=== PATIENT | male | born 1955 | race Caucasian/White ===

== ENCOUNTER 2020-11-14 14:03 | Observation (INO) | payer OTHER ==
[~2020-11-14] VITALS: Ht 172.7 cm; Wt 92.2 kg
[2020-11-14 15:08] LABS: C-REACTIVE PROTEIN, EXT RANGE 0.867 mg/dL (0.000-0.300); Troponin I 0.055 ng/mL (0.000-0.040)
[2020-11-14 15:49] LABS: Influenza A, PCR NEGATIVE (NEGATIVE); Influenza B, PCR NEGATIVE (NEGATIVE); Resp Syncytial Virus, PCR NEGATIVE (NEGATIVE); SARS-Cov-2 (COVID-19) PCR, MMC NEGATIVE (NEGATIVE)
[2020-11-14] MEDS ORDERED: HYDROCODONE-AC1 EA11 PO (16:01)
[2020-11-14 17:39] LABS: Thyroid Stimulating Hormone 1.68 uIU/mL (0.360-4.800)
--- NOTE | 2020-11-14 19:17 | NUR ---
REPORT RECEIVED FROM KENYON BONILLA; DENIES PAIN OR NAUSEA; TELEMETRY REFLECTS NSR PER NAOMI--BACTERIOLOGIST FOOD; PT PERSONAL WALLET WAS LOCKED UP IN HOSPITAL SAFE VIA CHASE FROM SECURITY (SLIP PLACED IN CHART).
--- NOTE | 2020-11-14 20:20 | NUR ---
finished assessment after 1900, saline locked, rm air, call light in reach, noc nurse wanted to give medication even though it was late and pulled it, so gave pt the medication available and encouraged him to have a good night
--- NOTE | 2020-11-14 20:37 | NUR ---
PT REQUESTED THAT SCD'S BE REMOVED. NURSE NOTIFIED
[2020-11-14 20:39] LABS: Creatine Kinase MB 2.1 ng/mL (0.0-3.6); Creatine Kinase MB Index 0.8 (0.0-4.0)
--- NOTE | 2020-11-14 21:03 | NUR ---
REPORT RECEIVED FROM KENYON JONES IN ICE; PT IS COMFORT CARE.
[2020-11-14 23:31] LABS: U Amphetamine Screen Not Detected; U Barbituate Screen Not Detected; U Benzodiazapine Screen Not Detected; U Buprenorphine Screen Not Detected; U Cannabinoids Screen Not Detected; U Cocaine Screen Not Detected; U Methadone Screen Not Detected; U Methamphetamine Screen Not Detected; U Opiates Screen DETECTED; U Oxycodone Screen Not Detected; U Phencyclidine Screen Not Detected; U Propoxyphene Screen Not Detected
[2020-11-15 04:45] LABS: Alanine Aminotransfer (ALT/SGP 59 U/L (12-78); Albumin, Blood 3.1 g/dL (3.4-5.0); Albumin/Globulin Ratio 0.8 (0.8-1.8); Alk Phos 83 U/L (50-136); Anion Gap 8 mmol/L (6-16); Aspartate Aminotrans (AST/SGOT 96 U/L (12-37); Bilirubin, Total 2.3 mg/dL (0.1-1.0); Blood Urea Nitrogen 15 mg/dL (8-24); Bun/Creatinine Ratio 20.7 (12.0-20.0); CO2, Blood 25 mmol/L (21-32); Calcium, Blood 8.3 mg/dL (8.5-10.1); Chloride, Blood 107 mmol/L (98-108); Cholesterol 192 mg/dL (50-200); Creatinine, Blood 0.73 mg/dL (0.60-1.20); Globulin, Blood 3.8 g/dL (2.2-4.0); Glomerular Filtration Rate >60 (60-); Glucose, Blood 143 mg/dL (70-99); Phosphorus, Blood 2.9 mg/dL (2.5-4.9); Potassium, Blood 3.8 mmol/L (3.5-5.5); Sodium, Blood 140 mmol/L (136-145); Total Protein, Blood 6.9 g/dL (6.4-8.2); Triglycerides 103 mg/dL (30-160)
[2020-11-15 05:06] LABS: BASOPHILS ABSOLUTE AUTO 0.03 K/mm3 (0.00-0.23); BASOPHILS PERCENT AUTO 1 % (0-2); EOSINOPHILS ABSOLUTE AUTO 0.19 K/mm3 (0.00-0.68); EOSINOPHILS PERCENT AUTO 4 % (0-6); Hematocrit 41.8 % (37.0-53.0); Hemoglobin 14.4 g/dL (13.5-17.5); IMMATURE GRAN ABSOLUTE AUTO 0.01 K/mm3 (0.00-0.10); IMMATURE GRAN PERCENT AUTO 0 % (0-1); LYMPHOCYTES ABSOLUTE AUTO 1.17 K/mm3 (0.84-5.20); LYMPHOCYTES PERCENT AUTO 26 % (21-46); MONOCYTES ABSOLUTE AUTO 0.32 K/mm3 (0.16-1.47); MONOCYTES PERCENT AUTO 7 % (4-13); Mean Corpuscular HGB 34.6 pg (26.0-34.0); Mean Corpuscular HGB Conc 34.4 g/dL (31.5-36.5); Mean Corpuscular Volume 101 fL (80-100); Mean Platelet Volume 11.5 fL (9.1-12.4); NEUTROPHILS ABSOLUTE AUTO 2.84 K/mm3 (1.96-9.15); NEUTROPHILS PERCENT AUTO 62 % (41-73); RDW Coefficient Variation 12.6 % (11.7-14.2); RDW Standard Deviation 47.4 fL (35.1-46.3); Red Blood Cell Count 4.16 M/mm3 (4.30-5.90); White Blood Cell Count 4.56 K/mm3 (4.00-11.30)
--- NOTE | 2020-11-15 05:13 | NUR ---
SHIFT SUMMARY: 64 Y/O MALE RESTED COMFORTABLY ALL SHIFT; DENIES PAIN OR NAUSEA; PT HAS CHRONIC BACK PAIN HE RATED 7/10 WITH SCHEDULED NORCO 5/325 PO GIVEN TWICE WITH PAIN RELIEF FELT; TELEMETRY REFLECTS NSR PER NAOMI--KIER OPERATOR; HAPPY AND COOPERATIVE; BED LOW POSITION WITH CALL LIGHT AT SIDE.
[2020-11-15 05:18] LABS: Platelet Count 44 K/mm3 (150-400)
[2020-11-15 06:53] LABS: Creatine Kinase MB 1.8 ng/mL (0.0-3.6); Creatine Kinase MB Index 0.9 (0.0-4.0)
--- NOTE | 2020-11-15 19:41 | NUR ---
a+o, half of stress test completed today pt needs to be npo after breakfast, no caffine tonight, call light in reach, rm air, lr infusing with no s/sx of infection or infiltration, bed in low position, pt indpt in rm, bsr shared with staff and pt
--- NOTE | 2020-11-15 23:55 | NUR ---
1935 PT RESTING COMFORTABLY IN BED; CHEERFUL; DENIES CHEST PAIN OR SOB.
--- NOTE | 2020-11-16 03:19 | NUR ---
SHIFT SUMMARY: 64 Y/O MALE RESTED COMFORTABLY ALL SHIFT; DENIES PAIN OR NAUSEA; C/O CHRONIC BACK PAIN WITH SCHEDULED NORCO 5/325MG PO X 1 TABLET GIVEN WITH RELIEF FELT; TELEMETRY REFLECTS NSR PER NAOMI--DIAGNOSTICS TECH; HAPPY AND COOPERATIVE; BED LOW POSITION WITH CALL LIGHT AT SIDE.
[2020-11-16 05:06] LABS: Hematocrit 41.3 % (37.0-53.0); Hemoglobin 14.3 g/dL (13.5-17.5); Mean Corpuscular HGB 34.9 pg (26.0-34.0); Mean Corpuscular HGB Conc 34.6 g/dL (31.5-36.5); Mean Corpuscular Volume 101 fL (80-100); Mean Platelet Volume 11.6 fL (9.1-12.4); RDW Coefficient Variation 12.5 % (11.7-14.2); RDW Standard Deviation 46.8 fL (35.1-46.3); White Blood Cell Count 4.31 K/mm3 (4.00-11.30)
[2020-11-16 05:21] LABS: Alanine Aminotransfer (ALT/SGP 57 U/L (12-78); Albumin, Blood 3.1 g/dL (3.4-5.0); Albumin/Globulin Ratio 0.8 (0.8-1.8); Alk Phos 84 U/L (50-136); Anion Gap 7 mmol/L (6-16); Aspartate Aminotrans (AST/SGOT 83 U/L (12-37); Blood Urea Nitrogen 14 mg/dL (8-24); Bun/Creatinine Ratio 20.2 (12.0-20.0); CO2, Blood 25 mmol/L (21-32); Calcium, Blood 8.6 mg/dL (8.5-10.1); Chloride, Blood 108 mmol/L (98-108); Creatinine, Blood 0.69 mg/dL (0.60-1.20); Globulin, Blood 3.8 g/dL (2.2-4.0); Glomerular Filtration Rate >60 (60-); Glucose, Blood 103 mg/dL (70-99); Phosphorus, Blood 3.4 mg/dL (2.5-4.9); Potassium, Blood 3.6 mmol/L (3.5-5.5); Sodium, Blood 140 mmol/L (136-145); Total Protein, Blood 6.9 g/dL (6.4-8.2)
[2020-11-16 05:55] LABS: Platelet Count 43 K/mm3 (150-400)
[2020-11-16] MEDS ORDERED: ASPI81CH PO (18:45)
[2020-11-16] MEDS ORDERED: ATOR20 PO (18:45)
[2020-11-16] MEDS ORDERED: Acetaminophen325 M1 PO (18:45)
[2020-11-16] MEDS ORDERED: BISA10S PR (18:46)
[2020-11-16] MEDS ORDERED: FAMO20 PO (18:46)
[2020-11-16] MEDS ORDERED: ONDA4ODT MM (18:47)
[2020-11-16] MEDS ORDERED: NITR.4SL SL (18:47)
--- NOTE | 2020-11-16 19:13 | NUR ---
PATIENT DISCHARGE: PATIENT DISCHARGED TO HOME THIS SHIFT. MEDICATION RECONCILIATION COMPLETED; MED LIST FAXED TO [facility]. DISCHARGE EDUCATION COMPLETED WITH PATIENT. PATIENT INDEPENDENT; PATIENT REFUSED WHEELCHAIR TRANSPORT TO EXIT; PATIENT ESCORTED TO EXIT BY [facility] STAFF AT 1912. PATIENT DEPARTED [facility] VIA PRIVATE AUTO.
== END 2020-11-16 19:20 | disposition home or self-care (01) ==
LOC: ER 14:03 → ERHOLD 14:04 → MEDS 14:04
PROVIDERS: Emergency Medicine; Physician Assistant; ADMIT Family Medicine
DX: R07.89 Other chest pain (principal); R06.00 Dyspnea, unspecified; R19.7 Diarrhea, unspecified; I25.10 Atherosclerotic heart disease of native coronary artery without angina pectoris; I25.2 Old myocardial infarction; K70.30 Alcoholic cirrhosis of liver without ascites; F10.288 Alcohol dependence with other alcohol-induced disorder; F17.200 Nicotine dependence, unspecified, uncomplicated; D69.6 Thrombocytopenia, unspecified; E11.9 Type 2 diabetes mellitus without complications; Z95.5 Presence of coronary angioplasty implant and graft; Z20.822 Contact with and (suspected) exposure to COVID-19; Z79.4 Long term (current) use of insulin
CPT/HCPCS: 0241U; 36415; 71260; 78452; 80053; 82150; 82465; 82550; 82553; 82947; 83690; 83735; 83880; 84100; 84443; 84478; 84484; 85025; 85027; 86140; 93005; 93010; 93017; 93306; 96365; 96366; 96375; 96376; 99285-25; A9270; A9500; G0378; J0706; J2270; J2785; J3411; J3475; J7042; J7120; Q9967

== ENCOUNTER 2021-04-05 14:48 | Observation (INO) | payer OTHER ==
[~2021-04-05] VITALS: Ht 172.7 cm; Wt 86.2 kg
[~2021-04-05 14:48] MED LIST: ASPI81CH PO; ATOR20 PO; Acetaminophen325 M1 PO; BISA10S PR; FAMO20 PO; HYDROCODONE-AC1 EA11 PO; NITR.4SL SL; ONDA4ODT MM
[2021-04-05] MEDS ORDERED: LANTUS SOL100 UNIT/1 SC (15:58)
[2021-04-05 16:18] LABS: Source, Urine Clean Catch
[2021-04-05 16:24] LABS: Appearance, Urine Clear (Clear); BASOPHILS ABSOLUTE AUTO 0.08 K/mm3 (0.00-0.23); BASOPHILS PERCENT AUTO 1 % (0-2); Blood, Urine 1+ (Neg); Color, Urine Amber (P-Yellow); EOSINOPHILS ABSOLUTE AUTO 0.34 K/mm3 (0.00-0.68); EOSINOPHILS PERCENT AUTO 5 % (0-6); Glucose Qualitative, Urine Neg (Neg); Hematocrit 44.5 % (37.0-53.0); Hemoglobin 15.6 g/dL (13.5-17.5); IMMATURE GRAN ABSOLUTE AUTO 0.01 K/mm3 (0.00-0.10); IMMATURE GRAN PERCENT AUTO 0 % (0-1); Ketones, Urine 2+ (Neg); LYMPHOCYTES ABSOLUTE AUTO 2.45 K/mm3 (0.84-5.20); LYMPHOCYTES PERCENT AUTO 37 % (21-46); Leukocyte Esterase, Urine 1+ (Neg); MONOCYTES ABSOLUTE AUTO 0.39 K/mm3 (0.16-1.47); MONOCYTES PERCENT AUTO 6 % (4-13); Mean Corpuscular HGB 34.3 pg (26.0-34.0); Mean Corpuscular HGB Conc 35.1 g/dL (31.5-36.5); Mean Corpuscular Volume 98 fL (80-100); Mean Platelet Volume 9.9 fL (9.1-12.4); NEUTROPHILS ABSOLUTE AUTO 3.29 K/mm3 (1.96-9.15); NEUTROPHILS PERCENT AUTO 50 % (41-73); Nitrite, Urine Neg (Neg); Platelet Count 131 K/mm3 (150-400); Protein, Urine 2+ (Neg); RDW Coefficient Variation 13.7 % (11.7-14.2); RDW Standard Deviation 50.2 fL (35.1-46.3); Red Blood Cell Count 4.55 M/mm3 (4.30-5.90); Specific Gravity, Urine 1.025 (1.003-1.022); Urobilinogen, Urine 3+ (Normal); White Blood Cell Count 6.56 K/mm3 (4.00-11.30)
[2021-04-05 16:38] LABS: Bilirubin, Urine 1+ (Neg)
[2021-04-05 16:39] LABS: Hyaline Casts 0-2 /lpf (0-2); Mucus Mod (0-Heavy)
[2021-04-05 16:42] LABS: Bacteria Few /hpf; Squamous Epithelial Cells Few /hpf (Few)
[2021-04-05 16:52] LABS: Alanine Aminotransfer (ALT/SGP 61 U/L (12-78); Albumin, Blood 3.8 g/dL (3.4-5.0); Albumin/Globulin Ratio 0.9 (0.8-1.8); Alk Phos 86 U/L (50-136); Anion Gap 9 mmol/L (6-16); Aspartate Aminotrans (AST/SGOT 99 U/L (12-37); Bilirubin, Total 1.2 mg/dL (0.1-1.0); Blood Urea Nitrogen 13 mg/dL (8-24); Bun/Creatinine Ratio 15.9 (12.0-20.0); CO2, Blood 22 mmol/L (21-32); Calcium, Blood 8.7 mg/dL (8.5-10.1); Chloride, Blood 109 mmol/L (98-108); Creatinine, Blood 0.82 mg/dL (0.60-1.20); Ethanol (Alcohol), Blood, Med 284 mg/dL; Globulin, Blood 4.2 g/dL (2.2-4.0); Glomerular Filtration Rate >60 (60-); Glucose, Blood 135 mg/dL (70-99); Potassium, Blood 4.2 mmol/L (3.5-5.5); Salicylate <1.7 mg/dL (2.8-20.0); Sodium, Blood 140 mmol/L (136-145)
[2021-04-05 16:56] LABS: U Amphetamine Screen Not Detected; U Barbituate Screen Not Detected; U Benzodiazapine Screen Not Detected; U Buprenorphine Screen Not Detected; U Cannabinoids Screen Not Detected; U Cocaine Screen Not Detected; U Methadone Screen Not Detected; U Methamphetamine Screen Not Detected; U Opiates Screen Not Detected; U Oxycodone Screen Not Detected; U Phencyclidine Screen Not Detected; U Propoxyphene Screen Not Detected
[2021-04-05 17:31] LABS: Acetaminophen, Random <2.0 ug/mL (10.0-30.0)
[2021-04-05] MEDS ORDERED: OMEP20ER PO (17:35)
[2021-04-05] MEDS ORDERED: METO50 PO (17:36)
[2021-04-05 17:47] LABS: SARS-Cov-2 (COVID-19) PCR, MMC NEGATIVE (NEGATIVE)
[2021-04-06] MEDS ORDERED: Naltrexone HCl50 MG PO (10:34)
[2021-04-06] MEDS ORDERED: Neurontin 300300 MG PO (10:34)
== END 2021-04-06 11:30 | disposition home or self-care (01) ==
LOC: ER 14:48 → EOR 14:49
PROVIDERS: Physician Assistant; ADMIT Emergency Medicine
DX: F33.9 Major depressive disorder, recurrent, unspecified (principal); F10.239 Alcohol dependence with withdrawal, unspecified; E11.9 Type 2 diabetes mellitus without complications; I25.2 Old myocardial infarction; Z95.5 Presence of coronary angioplasty implant and graft; Z79.4 Long term (current) use of insulin; Z79.82 Long term (current) use of aspirin; Z20.822 Contact with and (suspected) exposure to COVID-19
CPT/HCPCS: 36415; 80053; 81001; 82947; 85025; 87086; 99285; A9270; G0378; G0480; Q3014; U0004

== ENCOUNTER 2021-06-11 05:48 | Emergency (ER) | payer OTHER ==
[~2021-06-11] VITALS: Ht 175.3 cm; Wt 83.9 kg
[~2021-06-11 05:48] MED LIST changes: +LANTUS SOL100 UNIT/1 SC; +METO50 PO; +Naltrexone HCl50 MG PO; +Neurontin 300300 MG PO; +OMEP20ER PO
[2021-06-11 07:11] LABS: BASOPHILS ABSOLUTE AUTO 0.05 K/mm3 (0.00-0.23); BASOPHILS PERCENT AUTO 1 % (0-2); EOSINOPHILS ABSOLUTE AUTO 0.07 K/mm3 (0.00-0.68); EOSINOPHILS PERCENT AUTO 1 % (0-6); Hematocrit 41.5 % (37.0-53.0); Hemoglobin 14.5 g/dL (13.5-17.5); IMMATURE GRAN ABSOLUTE AUTO 0.03 K/mm3 (0.00-0.10); IMMATURE GRAN PERCENT AUTO 1 % (0-1); LYMPHOCYTES ABSOLUTE AUTO 0.68 K/mm3 (0.84-5.20); LYMPHOCYTES PERCENT AUTO 13 % (21-46); MONOCYTES ABSOLUTE AUTO 0.62 K/mm3 (0.16-1.47); MONOCYTES PERCENT AUTO 11 % (4-13); Mean Corpuscular HGB 33.7 pg (26.0-34.0); Mean Corpuscular HGB Conc 34.9 g/dL (31.5-36.5); Mean Corpuscular Volume 97 fL (80-100); Mean Platelet Volume 10.1 fL (9.1-12.4); NEUTROPHILS ABSOLUTE AUTO 3.97 K/mm3 (1.96-9.15); NEUTROPHILS PERCENT AUTO 73 % (41-73); RDW Coefficient Variation 13.4 % (11.7-14.2); RDW Standard Deviation 47.8 fL (35.1-46.3); White Blood Cell Count 5.42 K/mm3 (4.00-11.30)
[2021-06-11 07:23] LABS: Platelet Count 45 K/mm3 (150-400)
[2021-06-11 07:33] LABS: Alanine Aminotransfer (ALT/SGP 91 U/L (12-78); Albumin, Blood 3.5 g/dL (3.4-5.0); Albumin/Globulin Ratio 0.7 (0.8-1.8); Alk Phos 124 U/L (50-136); Anion Gap 11 mmol/L (6-16); Aspartate Aminotrans (AST/SGOT 232 U/L (12-37); Bilirubin, Total 3.3 mg/dL (0.1-1.0); Blood Urea Nitrogen 16 mg/dL (8-24); Bun/Creatinine Ratio 21.7 (12.0-20.0); CO2, Blood 23 mmol/L (21-32); Calcium, Blood 8.7 mg/dL (8.5-10.1); Chloride, Blood 103 mmol/L (98-108); Creatinine, Blood 0.74 mg/dL (0.60-1.20); Globulin, Blood 5.3 g/dL (2.2-4.0); Glomerular Filtration Rate >60 (60-); Glucose, Blood 128 mg/dL (70-99); Potassium, Blood 4.2 mmol/L (3.5-5.5); Sodium, Blood 137 mmol/L (136-145); Total Protein, Blood 8.8 g/dL (6.4-8.2); Troponin I 0.039 ng/mL (0.000-0.040)
[2021-06-11 07:44] LABS: Source, Urine Clean Catch
[2021-06-11 07:49] LABS: Appearance, Urine Clear (Clear); Blood, Urine 2+ (Neg); Color, Urine Amber (P-Yellow); Glucose Qualitative, Urine Neg (Neg); Ketones, Urine 4+ (Neg); Leukocyte Esterase, Urine 1+ (Neg); Nitrite, Urine Neg (Neg); Protein, Urine 2+ (Neg); Urobilinogen, Urine 2+ (Normal)
[2021-06-11 07:50] LABS: Bilirubin, Urine 1+ (Neg)
[2021-06-11 08:01] LABS: Amorphous Light (0-Heavy); Bacteria Rare /hpf; Mucus Heavy (0-Heavy); Red Blood Cells, Urine 0-2 /hpf (0-2); Squamous Epithelial Cells Rare /hpf (Few)
[2021-06-11] MEDS ORDERED: CHLO25 PO ×2 (09:37→09:40)
[2021-06-11] MEDS ORDERED: PROM25 PO (09:37)
== END 2021-06-11 09:50 | disposition home or self-care (01) ==
LOC: ER 05:48
PROVIDERS: Emergency Medicine
DX: R10.10 Upper abdominal pain, unspecified (principal); R11.2 Nausea with vomiting, unspecified; F10.10 Alcohol abuse, uncomplicated; I25.2 Old myocardial infarction; F32.9 Major depressive disorder, single episode, unspecified; Z79.4 Long term (current) use of insulin; Z79.899 Other long term (current) drug therapy
CPT/HCPCS: 36415; 74177; 80053; 81001; 83690; 84484; 85025; 87086; 93005; 93010; 96374-59; 96375; 99284-25; J1170; J2060; J2405; J7120; Q9967

== ENCOUNTER 2021-08-03 22:34 | Emergency (ER) | payer OTHER ==
[~2021-08-03] VITALS: Ht 172.7 cm; Wt 81.7 kg
[~2021-08-03 22:34] MED LIST changes: +CHLO25 PO; +PROM25 PO
[2021-08-03 23:16] LABS: BASOPHILS ABSOLUTE AUTO 0.06 K/mm3 (0.00-0.23); BASOPHILS PERCENT AUTO 1 % (0-2); EOSINOPHILS PERCENT AUTO 2 % (0-6); Hematocrit 30.6 % (37.0-53.0); Hemoglobin 10.5 g/dL (13.5-17.5); IMMATURE GRAN ABSOLUTE AUTO 0.02 K/mm3 (0.00-0.10); IMMATURE GRAN PERCENT AUTO 0 % (0-1); LYMPHOCYTES ABSOLUTE AUTO 1.08 K/mm3 (0.84-5.20); LYMPHOCYTES PERCENT AUTO 17 % (21-46); MONOCYTES ABSOLUTE AUTO 0.27 K/mm3 (0.16-1.47); MONOCYTES PERCENT AUTO 4 % (4-13); Mean Corpuscular HGB 35.4 pg (26.0-34.0); Mean Corpuscular HGB Conc 34.3 g/dL (31.5-36.5); Mean Corpuscular Volume 103 fL (80-100); Mean Platelet Volume 10.2 fL (9.1-12.4); NEUTROPHILS ABSOLUTE AUTO 4.66 K/mm3 (1.96-9.15); NEUTROPHILS PERCENT AUTO 75 % (41-73); Platelet Count 69 K/mm3 (150-400); RDW Coefficient Variation 14.3 % (11.7-14.2); RDW Standard Deviation 54.7 fL (35.1-46.3); Red Blood Cell Count 2.97 M/mm3 (4.30-5.90); White Blood Cell Count 6.19 K/mm3 (4.00-11.30)
[2021-08-03 23:37] LABS: Alanine Aminotransfer (ALT/SGP 56 U/L (12-78); Albumin, Blood 2.4 g/dL (3.4-5.0); Albumin/Globulin Ratio 0.6 (0.8-1.8); Alk Phos 81 U/L (50-136); Anion Gap 9 mmol/L (6-16); Aspartate Aminotrans (AST/SGOT 97 U/L (12-37); Bilirubin, Total 2.5 mg/dL (0.1-1.0); Blood Urea Nitrogen 16 mg/dL (8-24); Bun/Creatinine Ratio 24.4 (12.0-20.0); CO2, Blood 23 mmol/L (21-32); Calcium, Blood 7.8 mg/dL (8.5-10.1); Chloride, Blood 110 mmol/L (98-108); Creatinine, Blood 0.66 mg/dL (0.60-1.20); Glomerular Filtration Rate >60 (60-); Glucose, Blood 242 mg/dL (70-99); Potassium, Blood 4.7 mmol/L (3.5-5.5); Sodium, Blood 142 mmol/L (136-145); Total Protein, Blood 6.4 g/dL (6.4-8.2); Troponin I 0.036 ng/mL (0.000-0.040)
[2021-08-04 00:02] LABS: International Normalized Ratio 1.56; Prothrombin Time Results 15.9 Sec (9.7-11.5)
[2021-08-04 02:06] LABS: SARS-Cov-2 (COVID-19) PCR, MMC NEGATIVE (NEGATIVE)
== END 2021-08-04 02:20 | disposition short-term general hospital (02) ==
LOC: ER 22:34
PROVIDERS: Student in an Organized Health Care Education/Training Program
DX: K92.2 Gastrointestinal hemorrhage, unspecified (principal); F10.10 Alcohol abuse, uncomplicated; K70.30 Alcoholic cirrhosis of liver without ascites; D64.9 Anemia, unspecified; Z20.822 Contact with and (suspected) exposure to COVID-19; Z79.4 Long term (current) use of insulin; Z79.899 Other long term (current) drug therapy; I25.2 Old myocardial infarction; E11.9 Type 2 diabetes mellitus without complications; Z87.891 Personal history of nicotine dependence
CPT/HCPCS: 36415; 71045; 80053; 82140; 83690; 84484; 85025; 85610; 85730; 86850; 86900; 86901; 93005; 93010; 96365; 96367; 96375; 99285-25; C9113; J0696; J2354; J2405; J2765; U0004

== ENCOUNTER 2021-11-07 09:14 | Inpatient (IN) | payer OTHER ==
[~2021-11-07] VITALS: Ht 175.3 cm; Wt 84.4 kg
[2021-11-07 10:01] LABS: BASOPHILS ABSOLUTE AUTO 0.04 K/mm3 (0.00-0.23); BASOPHILS PERCENT AUTO 1 % (0-2); EOSINOPHILS ABSOLUTE AUTO 0.12 K/mm3 (0.00-0.68); EOSINOPHILS PERCENT AUTO 3 % (0-6); Hematocrit 30.1 % (37.0-53.0); Hemoglobin 9.5 g/dL (13.5-17.5); IMMATURE GRAN ABSOLUTE AUTO 0.01 K/mm3 (0.00-0.10); IMMATURE GRAN PERCENT AUTO 0 % (0-1); LYMPHOCYTES ABSOLUTE AUTO 0.97 K/mm3 (0.84-5.20); LYMPHOCYTES PERCENT AUTO 27 % (21-46); MONOCYTES ABSOLUTE AUTO 0.33 K/mm3 (0.16-1.47); MONOCYTES PERCENT AUTO 9 % (4-13); Mean Corpuscular HGB 25.1 pg (26.0-34.0); Mean Corpuscular HGB Conc 31.6 g/dL (31.5-36.5); Mean Corpuscular Volume 80 fL (80-100); Mean Platelet Volume 8.8 fL (9.1-12.4); NEUTROPHILS ABSOLUTE AUTO 2.14 K/mm3 (1.96-9.15); NEUTROPHILS PERCENT AUTO 59 % (41-73); Platelet Count 80 K/mm3 (150-400); RDW Coefficient Variation 22.5 % (11.7-14.2); RDW Standard Deviation 64.8 fL (35.1-46.3); Red Blood Cell Count 3.78 M/mm3 (4.30-5.90); White Blood Cell Count 3.61 K/mm3 (4.00-11.30)
[2021-11-07] MEDS ORDERED: ATOR40TA PO (10:10)
[2021-11-07] MEDS ORDERED: PANTOPRAZOLE SO40 M2 PO (10:10)
[2021-11-07] MEDS ORDERED: PLAVIX75 MG PO (10:10)
[2021-11-07] MEDS ORDERED: Inderal40 MG PO (10:11)
[2021-11-07] MEDS ORDERED: ISOSORBIDE MONO30 MG PO (10:11)
[2021-11-07] MEDS ORDERED: NITROGLYCERIN0.4 M3 SL (10:11)
[2021-11-07 10:13] LABS: Alanine Aminotransfer (ALT/SGP 24 U/L (12-78); Albumin, Blood 3.4 g/dL (3.4-5.0); Albumin/Globulin Ratio 0.8 (0.8-1.8); Alk Phos 93 U/L (50-136); Anion Gap 6 mmol/L (6-16); Aspartate Aminotrans (AST/SGOT 50 U/L (12-37); Bilirubin, Total 1.6 mg/dL (0.1-1.0); Blood Urea Nitrogen 7 mg/dL (8-24); Bun/Creatinine Ratio 10.3 (12.0-20.0); CO2, Blood 25 mmol/L (21-32); Calcium, Blood 7.9 mg/dL (8.5-10.1); Chloride, Blood 111 mmol/L (98-108); Creatinine, Blood 0.68 mg/dL (0.60-1.20); Glomerular Filtration Rate >60 (60-); Glucose, Blood 164 mg/dL (70-99); Potassium, Blood 3.6 mmol/L (3.5-5.5); Sodium, Blood 142 mmol/L (136-145); Total Protein, Blood 7.4 g/dL (6.4-8.2)
[2021-11-07 12:21] LABS: Anti-Xa UFH, PHA Monitoring <0.10 IU/mL; International Normalized Ratio 1.38; Prothrombin Time Results 14.2 Sec (9.7-11.5)
[2021-11-07 12:45] LABS: Influenza A, PCR NEGATIVE (NEGATIVE); Influenza B, PCR NEGATIVE (NEGATIVE); Resp Syncytial Virus, PCR NEGATIVE (NEGATIVE); SARS-Cov-2 (COVID-19) PCR, MMC NEGATIVE (NEGATIVE)
--- NOTE | 2021-11-07 14:50 | NUR ---
PT RETURNED TO PCU16 FROM FERTILIZER PROCESSING SUPERVISOR. R WRIST TR BAND, 11ML, NO BLEEDING OR HEMATOMA. SENSATION AND PERFUSION INTACT TO R HAND. 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 PT IS AWAKE, ALERT AND ORIENTED. CALL LIGHT IN REACH. WILL CONTINUE TO MONITOR.
--- NOTE | 2021-11-07 15:30 | NUR ---
2ML AIR REMOVED FROM TR BAND, BLEEDING NOTED AT SITE, 2ML AIR RETURNED TO BAND AND HEMOSTASIS OBTAINED. WILL MONITOR AND TRY AGAIN.
--- NOTE | 2021-11-07 16:11 | NUR ---
PT C/O 01/[address] RITCHIE NOTIFIED AND ORDERS RECEIVED.
--- NOTE | 2021-11-07 16:34 | NUR ---
DR MCCRAY UPDATED OF PT'S CHEST PAIN. STATES HE WILL COME EVALUATE THE PT AT BEDSIDE AND CALL PT'S FAMILY TO UPDATE THEM ON THE PLAN.
--- NOTE | 2021-11-07 16:55 | NUR ---
DR MCCRAY AT BEDSIDE. ORDERS FOR MORPHINE AND TRANSFER PT TO ICU FOR NITRO GTT. DR MCCRAY GIVEN NUMBER FOR PT'S SON, REQUESTING AN UPDATE ON STATUS. TR BAND HAS BEEN DEFLATED WITHOUT HEMATOMA OR BLEEDING, BAND WILL STAY IN PLACE X 1 HR PER PROTOCOL. WILL CONTINUE TO MONITOR AND REPORT TO FACSIMILE MACHINE OPERATOR FOR TRANSFER.
--- NOTE | 2021-11-07 17:05 | NUR ---
PT REPORTS CHEST PAIN 2/10 AT THIS TIME. PT APPEARS TO BE RESTING MORE COMFORTABLY. R RADIAL SITE WNL, NO BLEEDING OR HEMATOMA NOTED.
--- NOTE | 2021-11-07 18:03 | NUR ---
PT TRANSFERED FROM PCU THIS EVENING. PT WAS TRANSFERED TO BE STARTED ON NITRO GTT. PT ARRIVES WITH 2/10 SUBSTERNAL DULL ACHING CP. AFTER NITRO GTT STARTED CP IS IMPROVING. PT IS ON HEPARIN GTT AND BANANA BAG RUNNING. TR BAND TO R RADIAL ACCESS SITE IS DEFLATED BUT STILL IN PLACE. REVIEWED WITH CHILD CUSTODY EVALUATOR AND NO NEW BLEEDING AT SITE, NO HEMATOMA, ARM BOARD IN PLACE. PT IS A/O X4, PLEASANT AND COOPERATIVE. STATES HE HAS A LITTLE NAUSEA WITH CP, NO SOB. WILL CONTINUE TO MONITOR AND TITRATE NITRO FOR CP. POSSIBLE TRANSFER FOR CABG, NO ORDERS YET.
--- NOTE | 2021-11-07 19:15 | NUR ---
TOOK OVER CARE OF PEMA COSBY. PT ASKING ABOUT USING THE BATHROOM. PT ASSISTED TO STANDING POSITION NEXT TO THE BED TO USE URINAL, PAIN MINIMAL AND NO LIGHTHEADED OR DIZZINESS. ON NITRO GTT @ 10MCG/MIN AND HEPARIN 15U/KG. PIV SITES LEFT FOREARM AND WRIST, RIGHT AC WITH SALINE LOCK. ASSESSMENT COMPLETED. SEE FOR DETAILS.
--- NOTE | 2021-11-07 20:21 | NUR ---
LAB WENT IN TO DRAW BLOOD AT 1999, PEMA BEGAN TO EXPERIENCE AN INCREASE IN HIS CHEST PAIN, 02/28. PT MEDICATED WITH MORPHINE 2MG IV, HE BEGAN FEELING VERY NAUSEATED AND WAS CONCERNED FOR THROWING UP REGARDING HIS HISTORY WITH VARICIES, MEDICATED WITH ZOFRAN PER NOV. SYMPTOMS SUBSIDING. SPOKE TO PATIENT IN REGARDS TO CONVERSATION WITH THAT I HAD JUST PRIOR TO THE START OF HIS CHEST PAIN. STATES THAT HE WILL WORK ON TRANSFER IN THE MORNING FOR PATIENT TO RECEIVE 3 VESSEL BYPASS. PT MADE AWARE OF THIS, QUESTIONS ASKED AND ANSWERED. WILL CONTINUE TO MONITOR AND TREAT THROUGHOUT THE NIGHT.
--- NOTE | 2021-11-07 22:32 | NUR ---
EARLIER PEMA ASKED ABOUT THE MEDICINE HE WAS GIVEN FOR HIS ALCOHOL WITHDRAWAL ALTHOUGH HIS ONLY SYMPTOM CURRENTLY IS TREMORS. HE WAS GIVEN AN ORAL DOSE OF LIBRIUM WITH MINIMAL RELIEF, A DOSE OF ATIVAN WAS JUST GIVEN. PT STATES HIS CHEST PAIN IS COVERED AT THIS TIME. HIS HEPARIN HAS BEEN INCREASED TO 17U/KG PER PHARMACY ORDER, NITRO GTT REMAINS AT 15MCG/MIN. WILL CONTINUE TO MONITOR AND TREAT.
--- NOTE | 2021-11-08 00:15 | NUR ---
NASAL CANNULA OXYGEN AT 2L PLACED FOR PATIENT FOR O2 SATS DIPPING IN TO THE MID 80'S WHILE SLEEPING. PT DENIES ANY CHEST PAIN AT THIS TIME.
[2021-11-08 03:22] LABS: BASOPHILS ABSOLUTE AUTO 0.05 K/mm3 (0.00-0.23); BASOPHILS PERCENT AUTO 1 % (0-2); EOSINOPHILS ABSOLUTE AUTO 0.09 K/mm3 (0.00-0.68); EOSINOPHILS PERCENT AUTO 2 % (0-6); Hematocrit 26.5 % (37.0-53.0); Hemoglobin 8.3 g/dL (13.5-17.5); IMMATURE GRAN ABSOLUTE AUTO 0.01 K/mm3 (0.00-0.10); IMMATURE GRAN PERCENT AUTO 0 % (0-1); LYMPHOCYTES ABSOLUTE AUTO 1.04 K/mm3 (0.84-5.20); LYMPHOCYTES PERCENT AUTO 22 % (21-46); MONOCYTES ABSOLUTE AUTO 0.47 K/mm3 (0.16-1.47); MONOCYTES PERCENT AUTO 10 % (4-13); Mean Corpuscular HGB 25.3 pg (26.0-34.0); Mean Corpuscular HGB Conc 31.3 g/dL (31.5-36.5); Mean Corpuscular Volume 81 fL (80-100); Mean Platelet Volume 9.7 fL (9.1-12.4); NEUTROPHILS ABSOLUTE AUTO 3.17 K/mm3 (1.96-9.15); NEUTROPHILS PERCENT AUTO 66 % (41-73); Platelet Count 62 K/mm3 (150-400); RDW Coefficient Variation 22.4 % (11.7-14.2); RDW Standard Deviation 65.2 fL (35.1-46.3); Red Blood Cell Count 3.28 M/mm3 (4.30-5.90); White Blood Cell Count 4.83 K/mm3 (4.00-11.30)
[2021-11-08 03:47] LABS: Alanine Aminotransfer (ALT/SGP 19 U/L (12-78); Albumin, Blood 2.9 g/dL (3.4-5.0); Albumin/Globulin Ratio 0.8 (0.8-1.8); Alk Phos 79 U/L (50-136); Anion Gap 4 mmol/L (6-16); Aspartate Aminotrans (AST/SGOT 39 U/L (12-37); Bilirubin, Total 3.3 mg/dL (0.1-1.0); Blood Urea Nitrogen 8 mg/dL (8-24); Bun/Creatinine Ratio 12.5 (12.0-20.0); CO2, Blood 25 mmol/L (21-32); Calcium, Blood 7.3 mg/dL (8.5-10.1); Chloride, Blood 108 mmol/L (98-108); Creatinine, Blood 0.64 mg/dL (0.60-1.20); Globulin, Blood 3.6 g/dL (2.2-4.0); Glomerular Filtration Rate >60 (60-); Glucose, Blood 224 mg/dL (70-99); Magnesium, Blood 1.6 mg/dL (1.6-2.4); Potassium, Blood 4.1 mmol/L (3.5-5.5); Sodium, Blood 137 mmol/L (136-145); Total Protein, Blood 6.5 g/dL (6.4-8.2)
--- NOTE | 2021-11-08 04:12 | NUR ---
PEMA HAS BEEN SLEEPING, AWAKENS TO STIMULI. HAS DENIED CHEST PAIN THE LAST COUPLE OF HOURS AT EACH ASKING. VSS. NTG GTT @ 15MCG/MIN, HEPARIN GTT @ 17 U/KG/HR, NO CHANGES.
--- NOTE | 2021-11-08 05:48 | NUR ---
PEMA WOKE UP AND NEEDED TO USE THE URINAL, STANDBY ASSIST TO USE THE URINAL. HE DENIES ANY CHEST PAIN AT THIS TIME, TAKING IN ICE CHIPS. NTG GTT @ 15 MCG AND HEPARIN GTT @ 17U/KG. PT STATES HE FEELS LESS SHAKY AND A BIT MORE ENERGY THIS MORNING. WILL CONTINUE TO MONITOR.
--- NOTE | 2021-11-08 13:23 | NUR ---
PT TRANSFERRED TO [facility] AT 1315. REPORT GIVEN TO KENYON MORAN VIA PHONE. AT TIME ON TRANSFER, PT ON NITROGLYCERIN AT 30MCG/MIN AND HEPARIN AT 17 U/KG/HR. PT ALERT AND ORIENTED, DENIES CHEST PAIN. ON ROOM AIR. ALL BELONGINGS SENT WITH PATIENT. FAMILY NOTIFIED OF TRANSFER.
== END 2021-11-08 13:00 | disposition short-term general hospital (02) | DRG 281 ==
LOC: ER 09:14 → PCU 11:46 → ICUE 11:46 → PCU 12:38 → ICUE 17:20
PROVIDERS: Nurse Practitioner Acute Care; Student in an Organized Health Care Education/Training Program; ADMIT Internal Medicine
PROC: 4A023N7 Measurement of Cardiac Sampling and Pressure, Left Heart, Percutaneous Approach (ICD-10-PCS; principal; 2021-11-07)
PROC: B2111ZZ Fluoroscopy of Multiple Coronary Arteries using Low Osmolar Contrast (ICD-10-PCS; 2021-11-07)
PROC: 3E02340 Introduction of Influenza Vaccine into Muscle, Percutaneous Approach (ICD-10-PCS; 2021-11-07)
DX: I21.4 Non-ST elevation (NSTEMI) myocardial infarction (principal); I85.10 Secondary esophageal varices without bleeding; Z20.822 Contact with and (suspected) exposure to COVID-19; F32.A Depression, unspecified; Z23 Encounter for immunization; I25.10 Atherosclerotic heart disease of native coronary artery without angina pectoris; E78.5 Hyperlipidemia, unspecified; K70.30 Alcoholic cirrhosis of liver without ascites; Z98.890 Other specified postprocedural states; Z87.891 Personal history of nicotine dependence; Z79.4 Long term (current) use of insulin; Z79.02 Long term (current) use of antithrombotics/antiplatelets; Z79.899 Other long term (current) drug therapy
CPT/HCPCS: 0241U; 36415; 71045; 76937; 80053; 82947; 83735; 84484; 85025; 85520; 85610; 85730; 90686; 93005; 93010; 93306; 93458; 96374; 96375; 99152; 99285-25; A9270; C1769; C1887; C1894; J1644; J1815; J2060; J2250; J2270; J2405; J2560; J3010; J3411; J3475; J7030; J7040; J7042; J7050; Q9967

== ENCOUNTER 2021-12-27 13:56 | Emergency (ER) | payer OTHER ==
[~2021-12-27] VITALS: Ht 175.3 cm; Wt 87.1 kg
[~2021-12-27 13:56] MED LIST changes: +ATOR40TA PO; +ISOSORBIDE MONO30 MG PO; +Inderal40 MG PO; +NITROGLYCERIN0.4 M3 SL; +PANTOPRAZOLE SO40 M2 PO; +PLAVIX75 MG PO
[2021-12-27] MEDS ORDERED: ASPI81CH PO (14:06)
[2021-12-27 16:17] LABS: Anion Gap 5 mmol/L (6-16); Blood Urea Nitrogen 11 mg/dL (8-24); Bun/Creatinine Ratio 16.3 (12.0-20.0); CO2, Blood 27 mmol/L (21-32); Chloride, Blood 111 mmol/L (98-108); Creatinine, Blood 0.68 mg/dL (0.60-1.20); Glomerular Filtration Rate >60 (60-); Glucose, Blood 112 mg/dL (70-99); Potassium, Blood 4.6 mmol/L (3.5-5.5); Sodium, Blood 143 mmol/L (136-145)
[2021-12-27 16:21] LABS: BASOPHILS ABSOLUTE AUTO 0.07 K/mm3 (0.00-0.23); BASOPHILS PERCENT AUTO 2 % (0-2); EOSINOPHILS ABSOLUTE AUTO 0.27 K/mm3 (0.00-0.68); EOSINOPHILS PERCENT AUTO 6 % (0-6); Hematocrit 31.9 % (37.0-53.0); IMMATURE GRAN ABSOLUTE AUTO 0.01 K/mm3 (0.00-0.10); IMMATURE GRAN PERCENT AUTO 0 % (0-1); LYMPHOCYTES PERCENT AUTO 26 % (21-46); MONOCYTES ABSOLUTE AUTO 0.53 K/mm3 (0.16-1.47); MONOCYTES PERCENT AUTO 11 % (4-13); Mean Corpuscular HGB 25.8 pg (26.0-34.0); Mean Corpuscular HGB Conc 31.3 g/dL (31.5-36.5); Mean Corpuscular Volume 82 fL (80-100); NEUTROPHILS ABSOLUTE AUTO 2.57 K/mm3 (1.96-9.15); NEUTROPHILS PERCENT AUTO 55 % (41-73); RDW Coefficient Variation 20.7 % (11.7-14.2); RDW Standard Deviation 62.1 fL (35.1-46.3); Red Blood Cell Count 3.87 M/mm3 (4.30-5.90); White Blood Cell Count 4.65 K/mm3 (4.00-11.30)
[2021-12-27 16:26] LABS: Mean Platelet Volume 11.4 fL (9.1-12.4)
[2021-12-27 16:39] LABS: Platelet Count 51 K/mm3 (150-400)
[2021-12-27] MEDS ORDERED: POTA10T PO (17:15)
[2021-12-27] MEDS ORDERED: FURO20 PO (17:15)
[2022-06-15] MEDS ORDERED: ASPI81CH PO (04:12)
[2022-06-16] MEDS ORDERED: Amlodipine Bes2.5 MG PO (13:01)
== END 2021-12-27 17:42 | disposition home or self-care (01) ==
LOC: ER 13:56
PROVIDERS: Emergency Medicine
DX: R60.0 Localized edema (principal); E78.5 Hyperlipidemia, unspecified; E11.9 Type 2 diabetes mellitus without complications; I50.9 Heart failure, unspecified; Z87.891 Personal history of nicotine dependence; Z88.8 Allergy status to other drugs, medicaments and biological substances; Z79.4 Long term (current) use of insulin; Z79.82 Long term (current) use of aspirin; Z79.899 Other long term (current) drug therapy
CPT/HCPCS: 80048; 83880; 85025; 99283

== ENCOUNTER 2022-04-17 10:56 | Inpatient (IN) | payer OTHER ==
[~2022-04-17] VITALS: Ht 172.7 cm; Wt 78.6 kg
[~2022-04-17 10:56] MED LIST changes: +FURO20 PO; +POTA10T PO
[2022-04-17 11:59] LABS: BASOPHILS ABSOLUTE AUTO 0.07 K/mm3 (0.00-0.23); BASOPHILS PERCENT AUTO 1 % (0-2); EOSINOPHILS ABSOLUTE AUTO 0.06 K/mm3 (0.00-0.68); EOSINOPHILS PERCENT AUTO 1 % (0-6); Hematocrit 28.9 % (37.0-53.0); Hemoglobin 9.2 g/dL (13.5-17.5); IMMATURE GRAN ABSOLUTE AUTO 0.03 K/mm3 (0.00-0.10); IMMATURE GRAN PERCENT AUTO 0 % (0-1); LYMPHOCYTES ABSOLUTE AUTO 1.52 K/mm3 (0.84-5.20); LYMPHOCYTES PERCENT AUTO 17 % (21-46); MONOCYTES ABSOLUTE AUTO 0.72 K/mm3 (0.16-1.47); MONOCYTES PERCENT AUTO 8 % (4-13); Mean Corpuscular HGB 29.5 pg (26.0-34.0); Mean Corpuscular HGB Conc 31.8 g/dL (31.5-36.5); Mean Corpuscular Volume 93 fL (80-100); NEUTROPHILS ABSOLUTE AUTO 6.52 K/mm3 (1.96-9.15); NEUTROPHILS PERCENT AUTO 73 % (41-73); RDW Coefficient Variation 23.6 % (11.7-14.2); RDW Standard Deviation 78.7 fL (35.1-46.3); Red Blood Cell Count 3.12 M/mm3 (4.30-5.90); White Blood Cell Count 8.92 K/mm3 (4.00-11.30)
[2022-04-17 12:11] LABS: Albumin, Blood 3.1 g/dL (3.4-5.0); Albumin/Globulin Ratio 0.7 (0.8-1.8); Bilirubin, Total 4.6 mg/dL (0.1-1.0); Bun/Creatinine Ratio 28.9 (12.0-20.0); Creatinine, Blood 0.83 mg/dL (0.60-1.20); Globulin, Blood 4.4 g/dL (2.2-4.0); Potassium, Blood 5.2 mmol/L (3.5-5.5); Total Protein, Blood 7.5 g/dL (6.4-8.2)
[2022-04-17 12:15] LABS: Platelet Count 45 K/mm3 (150-400)
[2022-04-17 12:16] LABS: Source, Urine Clean Catch
[2022-04-17 12:26] LABS: Appearance, Urine Clear (Clear); Blood, Urine 1+ (Neg); Glucose Qualitative, Urine Neg (Neg); Ketones, Urine 2+ (Neg); Leukocyte Esterase, Urine Neg (Neg); Nitrite, Urine Neg (Neg); Protein, Urine 2+ (Neg); Specific Gravity, Urine 1.025 (1.003-1.022); Urobilinogen, Urine 2+ (Normal)
[2022-04-17 12:39] LABS: Bilirubin, Urine 2+ (Neg); Color, Urine Orange (P-Yellow)
[2022-04-17 12:42] LABS: Hyaline Casts 50-100 /lpf (0-2)
[2022-04-17 12:44] LABS: White Blood Cells, Urine 0-2 /hpf (0-5)
[2022-04-17 12:50] LABS: Red Blood Cells, Urine 0-2 /hpf (0-2)
[2022-04-17 12:52] LABS: Squamous Epithelial Cells Rare /hpf (Few)
[2022-04-17 12:54] LABS: Bacteria Few /hpf
[2022-04-17 12:55] LABS: Yeast/Fungi Urine Few /hpf
[2022-04-17] MEDS ORDERED: ATOR40TA PO (14:35)
[2022-04-17] MEDS ORDERED: ISOMON20 PO (14:35)
[2022-04-17] MEDS ORDERED: Inderal40 MG PO (14:36)
[2022-04-17 19:38] LABS: Influenza A, PCR NEGATIVE (NEGATIVE); Influenza B, PCR NEGATIVE (NEGATIVE); Resp Syncytial Virus, PCR NEGATIVE (NEGATIVE); SARS-Cov-2 (COVID-19) PCR, MMC NEGATIVE (NEGATIVE)
[2022-04-17 20:20] LABS: Hematocrit 25.1 % (37.0-53.0); Hemoglobin 8.2 g/dL (13.5-17.5)
--- NOTE | 2022-04-18 00:40 | NUR ---
ASSUMTION OF CARE PT RECIEVED FROM ED KENYON MAYO. PT LASHAE STABLE A&OX3 WAS OFF ON THE DATE. PT WAS ABLE TO COMPLEAT ADMISSION HISTORY. PT COMPLAINED OF HIS TREMORS WHICH ARE SEVER TO THE POINT PT GROSS MOTOR IS EFFECTIED NO OTHER COPLAINT PER PATIENT SEE ASSESMENT FOR HEAD TO TOE
[2022-04-18 04:13] LABS: Hematocrit 25.3 % (37.0-53.0); Hemoglobin 8.4 g/dL (13.5-17.5); Mean Corpuscular HGB 30.3 pg (26.0-34.0); Mean Corpuscular HGB Conc 33.2 g/dL (31.5-36.5); Mean Corpuscular Volume 91 fL (80-100); RDW Standard Deviation 79.3 fL (35.1-46.3); Red Blood Cell Count 2.77 M/mm3 (4.30-5.90); White Blood Cell Count 4.86 K/mm3 (4.00-11.30)
[2022-04-18 04:16] LABS: Platelet Count 28 K/mm3 (150-400)
[2022-04-18 04:24] LABS: Bun/Creatinine Ratio 28.5 (12.0-20.0); Creatinine, Blood 0.74 mg/dL (0.60-1.20); Potassium, Blood 4.4 mmol/L (3.5-5.5)
--- NOTE | 2022-04-18 04:29 | NUR ---
SHIFT SUMMARY PT WAS ADDMITTED FROM ED EARLY THIS AM PT WAS ALERT AND CONVERSATING ON ARIVAL HE WAS ABLE TO ANSEWER ADDMISSION QUESTIONS.PT WAS DISORIENTED ON THE DATE SAYING 1921 BUT WAS ABLE TO RECOGNIZE THIS WAS INCORRECT. PT VITAL SIGHNS HAVE REMAINED STABLE THROUGH OUT SHIFT. PT HAS REMAINED NPO FOR POSSIBLE EGD TODAY. PT IS WITHDRAWING FROM ETOH HIS LAST DRINK WAS 04/17/22 BEFORE HE CAME TO HOSPITAL "JUST SMALL GLASS" CIWA WAS 17 1MG ATIVAN WAS GIVEN NOTIFIED MD AND INCREASE FREQUENCY AND INCREASED DOSES ORDE. GAVE ANOTHER 1MG IV ATIVAN FOR CIWA OF 16 AND PT THEN FELL ASLEEP. ALL VITAL SIGNS OR WNL. WILL CONTINUE TO MONITOR AND DOSE WITH ATIVAN APPROPRIATLY. WILL GIVE ONCOMING RN REPORT
--- NOTE | 2022-04-18 07:30 | NUR ---
ASSUMED CARE OF PATIENT AT 0700, HE IS SLEEPING SOUNDLY ON HIS LEFT SIDE, HIS SATS CONTINUE TO INTERMITTENTLY DROP TO HI 70'S/80'S. POPPING BACK UP ON THEIR OWN. IN TO AROUSE PATIENT, DIFFICULT TO DO SO. PT STARTLES TO WAKE, VERY TREMULOUS, ANSWERS QUESTIONS APPROPRIATELY, BUT SAYS HE IS IN [place], ASKED IF THAT IS WHAT HE SAID, HE PROMPTLY CORRECTS HIMSELF MAKING A JOKE OF IT. O2 VIA NC PLACED AND PT EXPLAINED THE NEED FOR SUCH. DENIES ANY HISTORY OF SLEEP APNEA.
--- NOTE | 2022-04-18 11:24 | NUR ---
PT HAS BEEN SEEN BY MULTIPLE MEDICAL STAFF, HE IS NOW [facility]ED[facility]. HE IS ALLOWED FULL LIQUIDS UNTIL TOMORROW AT 1100. HE WAS ALSO VISITED BY HIS AND HIS SON. PT IS NOW QUIETLY RESTING.
[2022-04-18 11:51] LABS: Hematocrit 27.9 % (37.0-53.0); Hemoglobin 8.9 g/dL (13.5-17.5)
[2022-04-18 17:29] LABS: BASOPHILS ABSOLUTE AUTO 0.04 K/mm3 (0.00-0.23); BASOPHILS PERCENT AUTO 1 % (0-2); EOSINOPHILS ABSOLUTE AUTO 0.17 K/mm3 (0.00-0.68); EOSINOPHILS PERCENT AUTO 5 % (0-6); Hematocrit 24.6 % (37.0-53.0); Hemoglobin 8.2 g/dL (13.5-17.5); IMMATURE GRAN ABSOLUTE AUTO 0.01 K/mm3 (0.00-0.10); IMMATURE GRAN PERCENT AUTO 0 % (0-1); LYMPHOCYTES ABSOLUTE AUTO 0.62 K/mm3 (0.84-5.20); LYMPHOCYTES PERCENT AUTO 17 % (21-46); MONOCYTES PERCENT AUTO 11 % (4-13); Mean Corpuscular HGB 30.4 pg (26.0-34.0); Mean Corpuscular HGB Conc 33.3 g/dL (31.5-36.5); Mean Corpuscular Volume 91 fL (80-100); NEUTROPHILS ABSOLUTE AUTO 2.51 K/mm3 (1.96-9.15); NEUTROPHILS PERCENT AUTO 67 % (41-73); RDW Coefficient Variation 23.5 % (11.7-14.2); RDW Standard Deviation 78.2 fL (35.1-46.3); White Blood Cell Count 3.75 K/mm3 (4.00-11.30)
--- NOTE | 2022-04-18 17:34 | NUR ---
PT REQUESTED MEDICATION TO "HELP HIM", MARLON 13 MEDICATED WITH 1MG ATIVAN PER NOV. PT RESTING QUIETLY. CONTINUE WITH FULL LIQUIDS UNTIL TOMORROW, THEN CLEAR LIQUIDS TIL 1100 FOR EGD AT 1400.
[2022-04-18 17:35] LABS: Platelet Count 29 K/mm3 (150-400)
--- NOTE | 2022-04-18 17:41 | NUR ---
LAB CALLED TO REPORT PLATELETS OF 29, ACTUALLY IMPROVED BUT NOTIFIED , NO NEW ORDERS. NO CHANGE IN PATIENT CONDITION.
--- NOTE | 2022-04-18 18:40 | NUR ---
PEMA HAS HAD LABILE BLOOD PRESSURES ALL DAY, NO EVIDENCE OF MELENA, NO STOOLS AT ALL. HE DID TAKE IN A FULL LIQUID LUNCH, MUCH TO HIS DELIGHT. HE HAS VOIDED X2 USING THE URINAL, DARK CONCENTRATED. HE CONTINUES ON THE OCTREOTIDE @ 50MCG /HR, PROTONIX @ 10ML. NS @ TKO. HE HAS NOT NEEDED THE PRECEDEX THUS FAR. HE CONTINUES WITH CIWA 11-13. HE WAS MEDICATED ONCE AND HAS BEEN SLEEPING SINCE. HE CONTINUES WITH O2 VIA NC WHILE SLEEPING D/T HIS SATS DROPPING THIS AM. PLAN TO HAVE EGD TOMORROW AT 1400 WITH .
[2022-04-18 19:17] LABS: International Normalized Ratio 1.42; Prothrombin Time Results 14.6 Sec (9.7-11.5)
--- NOTE | 2022-04-18 20:49 | NUR ---
SHIFT ASSESSMENT ASSUMED CARE OF PT @ 1900. PT ALERT AND ORIENTED, FOLLOWING ALL COMMANDS. PT TREMULOUS IN UPPER EXTREMITIES. MEDICATED c PRN LIBRIUM FOR ELEVATED CIWA. PROTONIX AND SANDOSTATIN GTT INFUSING. ON 2LPM O2 VIA NC WHILE SLEEPING c SATS >90%. NSR ON THE ETIOLOGIST. PT DENIES ABD PAIN/ DISCOMFORT, NO URGE FOR BM AT THIS TIME. WILL MONITOR CLOSELY.
[2022-04-19 03:57] LABS: Albumin, Blood 2.5 g/dL (3.4-5.0); Albumin/Globulin Ratio 0.7 (0.8-1.8); Bilirubin, Total 3.2 mg/dL (0.1-1.0); Bun/Creatinine Ratio 18.7 (12.0-20.0); Calcium, Blood 7.6 mg/dL (8.5-10.1); Creatinine, Blood 0.7 mg/dL (0.60-1.20); Globulin, Blood 3.4 g/dL (2.2-4.0); Potassium, Blood 4.4 mmol/L (3.5-5.5); Total Protein, Blood 5.9 g/dL (6.4-8.2)
--- NOTE | 2022-04-19 05:48 | NUR ---
SHIFT SUMMARY PT REMAINS ALERT AND ORIENTED. CIWA SCORES <8 AFTER 1 X 50MG LIBRIUM. PT ASSISTED TO BEDSIDE COMMODE THIS AM BUT NO BM, JUST FLATULANCE. NO BLOODY STOOL THIS SHIFT. PT DID WELL WALKING TO BEDSIDE COMMODE, DENIED DIZZINESS, STATED HE FEELS MUCH BETTER THIS AM. PT GIVEN WATER ONLY DURING THE NIGHT. VSS. NO OTHER ACUTE CHANGES, WILL REPORT TO ONCOMING NURSE.
[2022-04-19 07:58] LABS: BASOPHILS ABSOLUTE AUTO 0.04 K/mm3 (0.00-0.23); BASOPHILS PERCENT AUTO 1 % (0-2); EOSINOPHILS ABSOLUTE AUTO 0.15 K/mm3 (0.00-0.68); EOSINOPHILS PERCENT AUTO 4 % (0-6); Hematocrit 25.8 % (37.0-53.0); Hemoglobin 8.5 g/dL (13.5-17.5); IMMATURE GRAN ABSOLUTE AUTO 0.02 K/mm3 (0.00-0.10); IMMATURE GRAN PERCENT AUTO 1 % (0-1); LYMPHOCYTES ABSOLUTE AUTO 0.77 K/mm3 (0.84-5.20); LYMPHOCYTES PERCENT AUTO 18 % (21-46); MONOCYTES ABSOLUTE AUTO 0.47 K/mm3 (0.16-1.47); MONOCYTES PERCENT AUTO 11 % (4-13); Mean Corpuscular HGB 30.2 pg (26.0-34.0); Mean Corpuscular HGB Conc 32.9 g/dL (31.5-36.5); Mean Corpuscular Volume 92 fL (80-100); Mean Platelet Volume 10.5 fL (9.1-12.4); NEUTROPHILS ABSOLUTE AUTO 2.88 K/mm3 (1.96-9.15); NEUTROPHILS PERCENT AUTO 66 % (41-73); RDW Coefficient Variation 23.6 % (11.7-14.2); RDW Standard Deviation 79.2 fL (35.1-46.3); Red Blood Cell Count 2.81 M/mm3 (4.30-5.90); White Blood Cell Count 4.33 K/mm3 (4.00-11.30)
[2022-04-19 08:01] LABS: Platelet Count 31 K/mm3 (150-400)
--- NOTE | 2022-04-19 15:37 | NUR ---
04/19/22 1537 Katherine Clark History, Chart, Medications and Allergies reviewed before start of procedure. Pre-Op teaching done. Patient verbalizes understanding. See Anesthesia record DR LAMAR FOR SEDATION.
--- NOTE | 2022-04-19 18:44 | NUR ---
SUMMARY PT RESTING IN BED. DENIES PAIN. NO BLOODY BM'S TODAY. PT HAD EGD DONE THIS AFTERNOON. PT IS AWAKE AND A/O X4 AFTER PROCEDURE. REMAINS ON PROTONIX AND SANDOSTATIN. GOT ONE UNIT OF PLATELETS PER DR. LINARES. AT BEDSIDE. NO SIGN OF DISTRESS. CALL LIGHT IN REACH.
[2022-04-20 03:56] LABS: BASOPHILS ABSOLUTE AUTO 0.05 K/mm3 (0.00-0.23); BASOPHILS PERCENT AUTO 1 % (0-2); EOSINOPHILS ABSOLUTE AUTO 0.13 K/mm3 (0.00-0.68); EOSINOPHILS PERCENT AUTO 3 % (0-6); Hemoglobin 8.3 g/dL (13.5-17.5); IMMATURE GRAN ABSOLUTE AUTO 0.02 K/mm3 (0.00-0.10); IMMATURE GRAN PERCENT AUTO 1 % (0-1); LYMPHOCYTES ABSOLUTE AUTO 0.85 K/mm3 (0.84-5.20); LYMPHOCYTES PERCENT AUTO 21 % (21-46); MONOCYTES ABSOLUTE AUTO 0.63 K/mm3 (0.16-1.47); MONOCYTES PERCENT AUTO 16 % (4-13); Mean Corpuscular HGB 30.5 pg (26.0-34.0); Mean Corpuscular HGB Conc 33.2 g/dL (31.5-36.5); Mean Corpuscular Volume 92 fL (80-100); NEUTROPHILS ABSOLUTE AUTO 2.37 K/mm3 (1.96-9.15); NEUTROPHILS PERCENT AUTO 59 % (41-73); RDW Coefficient Variation 23.2 % (11.7-14.2); RDW Standard Deviation 78.7 fL (35.1-46.3); Red Blood Cell Count 2.72 M/mm3 (4.30-5.90); White Blood Cell Count 4.05 K/mm3 (4.00-11.30)
[2022-04-20 04:02] LABS: Platelet Count 45 K/mm3 (150-400)
[2022-04-20 04:15] LABS: Albumin, Blood 2.5 g/dL (3.4-5.0); Albumin/Globulin Ratio 0.7 (0.8-1.8); Bilirubin, Total 3.7 mg/dL (0.1-1.0); Bun/Creatinine Ratio 14.4 (12.0-20.0); Calcium, Blood 7.7 mg/dL (8.5-10.1); Creatinine, Blood 0.63 mg/dL (0.60-1.20); Globulin, Blood 3.5 g/dL (2.2-4.0); Potassium, Blood 4.2 mmol/L (3.5-5.5)
--- NOTE | 2022-04-20 05:33 | NUR ---
SHIFT SUMMARY PT REMAINED STABLE THROUGHOUT SHIFT A&OX4 WITH BREIF MOMENTS OF CONFUSSION WHEN AWAKENED. HE DID HAVE A COUPLE OF EPISODES OF DESATURATION WIHT I ATTRIBUTED TO LYNETTE SLEEP APENA PLACE ON 2L NC AND NO FUTHER EPISODES. HR HAS BEEN 70-110 NOW IN THE 70 WHEN PT IS DEEPLY SLEEPING.BLOOD PRESSER HAS BEEN NORMOTENSIVE.PT HAS NOT BEEN SCORING CIWA AND NO MEDICATIONS GIVEN FOR CIWA. WILL CONTINUE TO MONITOR PT AND REPORT OF TO ONCOMING RN.
[2022-04-20] MEDS ORDERED: FOLI1 PO (12:02)
[2022-04-20] MEDS ORDERED: HAIR, SKIN AND1 EAC3 PO (12:07)
[2022-04-20] MEDS ORDERED: B-1100 M1 PO (12:08)
[2022-04-20] MEDS ORDERED: PANT40 PO (12:08)
--- NOTE | 2022-04-20 12:25 | NUR ---
PT A/O X4, DENIES PAIN TODAY. NO BM'S TODAY. VSS. DR. LINARES CAME IN TO SEE PT AND GO OVER RESULTS OF EGD WITH PT. DR. LINARES OKAY'D PT TO GO HOME AND WILL DO ANOTHER EGD ON THURSDAY OUTPT. DISCHARGE INSTRUCTIONS GONE OVER WITH PT. PT ABLE TO DRESS SELF. NO SIGN OF DISTRESS PT LEAVE THE UNIT.
[2022-04-21 06:09] LABS: HBSAG SCREEN Negative (Negative); HCV ANTIBODY 0.1 (0.0-0.9); HEP B CORE AB, TOT Negative (Negative); HEP B SURFACE AB Non Reactive (.)
== END 2022-04-20 12:40 | disposition home or self-care (01) | DRG 392 ==
LOC: ER 10:56 → ICUW 23:53 → ER 04-18 00:33 → ICUW 04-18 00:35
PROVIDERS: Internal Medicine; Internal Medicine Gastroenterology; Physician Assistant; Student in an Organized Health Care Education/Training Program; ADMIT Internal Medicine
PROC: 0W3P8ZZ Control Bleeding in Gastrointestinal Tract, Via Natural or Artificial Opening Endoscopic (ICD-10-PCS; principal; 2022-04-19 14:00)
DX: K31.89 Other diseases of stomach and duodenum (principal); K92.1 Melena; D62 Acute posthemorrhagic anemia; F10.139 Alcohol abuse with withdrawal, unspecified; D68.4 Acquired coagulation factor deficiency; K76.6 Portal hypertension; I85.10 Secondary esophageal varices without bleeding; Z20.822 Contact with and (suspected) exposure to COVID-19; E78.2 Mixed hyperlipidemia; K70.30 Alcoholic cirrhosis of liver without ascites; I25.10 Atherosclerotic heart disease of native coronary artery without angina pectoris; E11.9 Type 2 diabetes mellitus without complications; R79.89 Other specified abnormal findings of blood chemistry; E80.6 Other disorders of bilirubin metabolism; R16.1 Splenomegaly, not elsewhere classified; K21.9 Gastro-esophageal reflux disease without esophagitis; J44.9 Chronic obstructive pulmonary disease, unspecified; E88.09 Other disorders of plasma-protein metabolism, not elsewhere classified; I27.20 Pulmonary hypertension, unspecified; F32.A Depression, unspecified; I50.9 Heart failure, unspecified; D69.6 Thrombocytopenia, unspecified; Z88.8 Allergy status to other drugs, medicaments and biological substances; I25.2 Old myocardial infarction; Z79.02 Long term (current) use of antithrombotics/antiplatelets; Z79.4 Long term (current) use of insulin; Z79.899 Other long term (current) drug therapy; Z87.891 Personal history of nicotine dependence; Z95.5 Presence of coronary angioplasty implant and graft
CPT/HCPCS: 0241U; 36415; 76700; 80048; 80053; 81001; 82105; 82272; 82306; 82947; 83690; 83735; 84100; 85014; 85018; 85025; 85027; 85610; 86704; 86708; 86803; 86850; 86900; 86901; 87340; 96365; 96368; 96375; 96376; 99285-25; A9270; C9113; J0171; J0696; J1815; J2060; J2354; J2704; J3411; J3475; J7040; J7050; P9035

== ENCOUNTER 2022-04-25 07:32 | Day surgery (SDC) | payer OTHER ==
[~2022-04-25] VITALS: Ht 175.3 cm; Wt 80.4 kg
[~2022-04-25 07:32] MED LIST changes: +B-1100 M1 PO; +FOLI1 PO; +HAIR, SKIN AND1 EAC3 PO; +ISOMON20 PO; +PANT40 PO
[2022-04-25] MEDS ORDERED: CLOPIDOGREL300 M1 (08:25)
== END 2022-04-25 10:29 | disposition home or self-care (01) ==
LOC: ORSCSDS 07:32
PROVIDERS: Internal Medicine Gastroenterology
PROC: 0DB98ZX Excision of Duodenum, Via Natural or Artificial Opening Endoscopic, Diagnostic (ICD-10-PCS; principal; 2022-04-25 08:45)
DX: K92.1 Melena (principal); K31.7 Polyp of stomach and duodenum; K31.A0 Gastric intestinal metaplasia, unspecified; K70.31 Alcoholic cirrhosis of liver with ascites; I85.10 Secondary esophageal varices without bleeding; K76.6 Portal hypertension; K31.89 Other diseases of stomach and duodenum; D69.6 Thrombocytopenia, unspecified; I27.20 Pulmonary hypertension, unspecified; I10 Essential (primary) hypertension; E78.2 Mixed hyperlipidemia; E11.9 Type 2 diabetes mellitus without complications; J44.9 Chronic obstructive pulmonary disease, unspecified; J45.909 Unspecified asthma, uncomplicated; Z79.01 Long term (current) use of anticoagulants; Z79.4 Long term (current) use of insulin; Z79.899 Other long term (current) drug therapy; Z87.891 Personal history of nicotine dependence
CPT/HCPCS: 82947; 88305; A9270; J2370; J2405; J2704; J7120

== ENCOUNTER 2022-09-04 20:34 | Emergency (ER) | payer OTHER ==
[~2022-09-04] VITALS: Ht 175.3 cm; Wt 83.9 kg
[~2022-09-04 20:34] MED LIST changes: +Amlodipine Bes2.5 MG PO; +CLOPIDOGREL300 M1
[2022-09-04 21:48] LABS: BASOPHILS ABSOLUTE AUTO 0.08 K/mm3 (0.00-0.23); BASOPHILS PERCENT AUTO 1 % (0-2); EOSINOPHILS ABSOLUTE AUTO 0.35 K/mm3 (0.00-0.68); EOSINOPHILS PERCENT AUTO 4 % (0-6); Hematocrit 30.4 % (37.0-53.0); Hemoglobin 9.8 g/dL (13.5-17.5); IMMATURE GRAN ABSOLUTE AUTO 0.03 K/mm3 (0.00-0.10); IMMATURE GRAN PERCENT AUTO 0 % (0-1); LYMPHOCYTES ABSOLUTE AUTO 2.16 K/mm3 (0.84-5.20); LYMPHOCYTES PERCENT AUTO 26 % (21-46); MONOCYTES ABSOLUTE AUTO 0.57 K/mm3 (0.16-1.47); MONOCYTES PERCENT AUTO 7 % (4-13); Mean Corpuscular HGB 28.4 pg (26.0-34.0); Mean Corpuscular HGB Conc 32.2 g/dL (31.5-36.5); Mean Corpuscular Volume 88 fL (80-100); Mean Platelet Volume 9.4 fL (9.1-12.4); NEUTROPHILS ABSOLUTE AUTO 5.23 K/mm3 (1.96-9.15); NEUTROPHILS PERCENT AUTO 62 % (41-73); Platelet Count 100 K/mm3 (150-400); RDW Coefficient Variation 18.6 % (11.7-14.2); RDW Standard Deviation 59.7 fL (35.1-46.3); Red Blood Cell Count 3.45 M/mm3 (4.30-5.90); White Blood Cell Count 8.42 K/mm3 (4.00-11.30)
[2022-09-04 22:03] LABS: Albumin/Globulin Ratio 0.8 (0.8-1.8); Bilirubin, Total 2.3 mg/dL (0.1-1.0); Bun/Creatinine Ratio 10.8 (12.0-20.0); Calcium, Blood 7.8 mg/dL (8.5-10.1); Creatinine, Blood 0.65 mg/dL (0.60-1.20); Potassium, Blood 4.3 mmol/L (3.5-5.5)
== END 2022-09-05 03:58 | disposition home or self-care (01) ==
LOC: ER 20:34
PROVIDERS: Student in an Organized Health Care Education/Training Program
DX: R29.898 Other symptoms and signs involving the musculoskeletal system (principal); F10.129 Alcohol abuse with intoxication, unspecified; E83.51 Hypocalcemia; I25.2 Old myocardial infarction; E78.5 Hyperlipidemia, unspecified; E11.9 Type 2 diabetes mellitus without complications; I50.9 Heart failure, unspecified; I25.10 Atherosclerotic heart disease of native coronary artery without angina pectoris; Z88.8 Allergy status to other drugs, medicaments and biological substances; Z79.899 Other long term (current) drug therapy; Z79.82 Long term (current) use of aspirin; Z79.4 Long term (current) use of insulin; Z79.02 Long term (current) use of antithrombotics/antiplatelets; Z87.891 Personal history of nicotine dependence; Z95.5 Presence of coronary angioplasty implant and graft; Y90.8 Blood alcohol level of 240 mg/100 ml or more
CPT/HCPCS: 36415; 80053; 85025; 93005; 93010; 96365; 96366; 96368; 99284-25; G0480; J0610; J3475

== ENCOUNTER 2022-09-13 08:41 | Emergency (ER) | payer OTHER ==
[~2022-09-13] VITALS: Ht 175.3 cm; Wt 74.8 kg
[2022-09-13 10:35] LABS: Source, Urine Clean Catch
[2022-09-13 10:37] LABS: Appearance, Urine Clear (Clear); Bilirubin, Urine Neg (Neg); Blood, Urine Neg (Neg); Color, Urine Yellow (P-Yellow); Glucose Qualitative, Urine Neg (Neg); Ketones, Urine Neg (Neg); Leukocyte Esterase, Urine Neg (Neg); Nitrite, Urine Neg (Neg); Protein, Urine Neg (Neg); Urobilinogen, Urine 2+ (Normal)
== END 2022-09-13 11:42 | disposition home or self-care (01) ==
LOC: ER 08:41
PROVIDERS: Physician Assistant
DX: R30.0 Dysuria (principal); E11.9 Type 2 diabetes mellitus without complications; E78.5 Hyperlipidemia, unspecified; I50.9 Heart failure, unspecified; I25.10 Atherosclerotic heart disease of native coronary artery without angina pectoris; Z79.82 Long term (current) use of aspirin; Z79.4 Long term (current) use of insulin; Z79.899 Other long term (current) drug therapy; Z88.8 Allergy status to other drugs, medicaments and biological substances; Z87.891 Personal history of nicotine dependence
CPT/HCPCS: 81003

== ENCOUNTER 2022-11-02 18:14 | Inpatient (IN) | payer OTHER ==
[~2022-11-02] VITALS: Ht 175.3 cm; Wt 91.0 kg
[~2022-11-02 18:14] MED LIST changes: -CLOPIDOGREL300 M1; +CLOPIDOGREL300 M1 PO
[2022-11-02 19:12] LABS: BASOPHILS ABSOLUTE AUTO 0.08 K/mm3 (0.00-0.23); BASOPHILS PERCENT AUTO 1 % (0-2); EOSINOPHILS ABSOLUTE AUTO 0.08 K/mm3 (0.00-0.68); EOSINOPHILS PERCENT AUTO 1 % (0-6); Hematocrit 24.6 % (37.0-53.0); Hemoglobin 8.3 g/dL (13.5-17.5); IMMATURE GRAN ABSOLUTE AUTO 0.09 K/mm3 (0.00-0.10); IMMATURE GRAN PERCENT AUTO 1 % (0-1); LYMPHOCYTES PERCENT AUTO 15 % (21-46); MONOCYTES ABSOLUTE AUTO 1.08 K/mm3 (0.16-1.47); MONOCYTES PERCENT AUTO 11 % (4-13); Mean Corpuscular HGB 32.8 pg (26.0-34.0); Mean Corpuscular HGB Conc 33.7 g/dL (31.5-36.5); Mean Corpuscular Volume 97 fL (80-100); Mean Platelet Volume 10.9 fL (9.1-12.4); NEUTROPHILS ABSOLUTE AUTO 7.36 K/mm3 (1.96-9.15); NEUTROPHILS PERCENT AUTO 72 % (41-73); NRBC ABSOLUTE 0.02 K/mm3 (0.00-0.02); NRBC Auto 0.2 /100 WBC (0.0-0.2); Platelet Count 122 K/mm3 (150-400); RDW Coefficient Variation 21.5 % (11.7-14.2); RDW Standard Deviation 75.6 fL (35.1-46.3); Red Blood Cell Count 2.53 M/mm3 (4.30-5.90); White Blood Cell Count 10.19 K/mm3 (4.00-11.30)
[2022-11-02 19:31] LABS: Albumin, Blood 2.3 g/dL (3.4-5.0); Albumin/Globulin Ratio 0.6 (0.8-1.8); Bilirubin, Total 13.9 mg/dL (0.1-1.0); Bun/Creatinine Ratio 43.5 (12.0-20.0); Calcium, Blood 7.4 mg/dL (8.5-10.1); Creatinine, Blood 0.62 mg/dL (0.60-1.20); Globulin, Blood 3.9 g/dL (2.2-4.0); Potassium, Blood 5.2 mmol/L (3.5-5.5); Total Protein, Blood 6.2 g/dL (6.4-8.2)
[2022-11-02 20:54] LABS: International Normalized Ratio 2.14; Prothrombin Time Results 21.4 Sec (9.7-11.5)
[2022-11-02 23:00] LABS: Hematocrit 19.9 % (37.0-53.0); Hemoglobin 6.9 g/dL (13.5-17.5)
--- NOTE | 2022-11-03 04:45 | NUR ---
PHARMACEUTICAL DETAILER SUMMARY PT ARRIVES FROM ED VIA GURNEY, IV LINES INFUSING CONSTANT IN BUE, SEE MAR. ATTEMPTS MADE TO ADD THIRD IV LINE AND ONE WAS PLACED AND BLOOD PRODUCT ADMIN STARTED SEE FLOW SHEETS. PT ARRIVED A/O X4 AND REMAINS SO. C/O ABDOMINAL PAIN WHICH HE SAYS HIS CHRONIC FROM [place]IT[place] BUT WORSENED HERE IN HOSPITAL. MEDICATED FOR PAIN AND NAUSEA PER MAR. PT WAS ABLE TO AMBULATE TO BATHROOM WITH SBA. HE DID HAVE A LARGE LOOSE STOOL THAT APPEARS BLOODY. VSS, O2 SATS >92%, SR IN 70S-80S, B/PS STABLE. WCTM.
[2022-11-03 06:23] LABS: Hematocrit 20.6 % (37.0-53.0); Hemoglobin 7.2 g/dL (13.5-17.5); Mean Corpuscular HGB 33.3 pg (26.0-34.0); Mean Corpuscular Volume 95 fL (80-100); NRBC ABSOLUTE 0.02 K/mm3 (0.00-0.02); NRBC Auto 0.2 /100 WBC (0.0-0.2); Platelet Count 94 K/mm3 (150-400); RDW Coefficient Variation 21.3 % (11.7-14.2); RDW Standard Deviation 70.2 fL (35.1-46.3); Red Blood Cell Count 2.16 M/mm3 (4.30-5.90); White Blood Cell Count 8.37 K/mm3 (4.00-11.30)
[2022-11-03 06:38] LABS: International Normalized Ratio 2.13; Prothrombin Time Results 21.3 Sec (9.7-11.5)
[2022-11-03 06:42] LABS: Albumin, Blood 1.8 g/dL (3.4-5.0); Albumin/Globulin Ratio 0.6 (0.8-1.8); Bilirubin, Total 10.4 mg/dL (0.1-1.0); Bun/Creatinine Ratio 41.8 (12.0-20.0); Creatinine, Blood 0.79 mg/dL (0.60-1.20); Potassium, Blood 5.1 mmol/L (3.5-5.5); Total Protein, Blood 4.8 g/dL (6.4-8.2)
[2022-11-03 09:52] LABS: Hematocrit 22.5 % (37.0-53.0); Hemoglobin 7.8 g/dL (13.5-17.5)
--- NOTE | 2022-11-03 14:01 | NUR ---
Patient is lying in bed and alert. He tells me about his UGIB and the symptoms that he has. He shares about his relationships, his many locations he has lived and his [employer] leah. He explains about the upcoming procedure and his concerns. I provide therapeutic listening, anxiety containment and prayer. Patient responed well and showed signs of a decrease in stress. I will continue to remain available to patient and family.
[2022-11-03 15:26] LABS: Hematocrit 21.3 % (37.0-53.0); Hemoglobin 7.5 g/dL (13.5-17.5)
--- NOTE | 2022-11-03 16:54 | NUR ---
SHIFT SUMMARY PT A/O X4. PLEASANT AND COOPERATIVE. SPO2 >92% ON ROOM AIR. SR IN THE 70'S. DENIES ANY ANGINA, CHEST PRESSURE, OR SOB. PT JAUNDICED FROM ABDOMEN UP, INCLUDING EYES. PT STATES THIS IS NEW ONSET IN THE PAST FEW DAYS. PT ABD FIRM AND DISTENDED, PT STATES THIS IS NORMAL. BLE EDEMA THAT PATIENT STATES HAS BEEN PRESENT FOR APPROX 1 MONTH. PT HAD ONE BM TODAY THAT HE STATED WAS RED AND LOOSE. IT WAS NOT SEEN BY THIS RN. NO EMESIS THIS SHIFT AND WAS ONLY MEDICATED FOR NAUSEA ONCE THIS AM. PT C/O INFREQUENT LOWER ABD PAIN. MEDICATED PER EMAR. PT AND TOLD THIS RN THAT HE WAS DRINKING APPROXIMATELY 1-2 BOXES OF WINE DAILY AND HIS LAST DRINK WAS THE MORNING OF 11/02/22. CIWAS WERE STARTED. PT MEDICATED WITH LIBRIUM X2 AND ATIVAN X1 PER EMAR. DISCUSSED WITH DR HERNÁNDEZ ABOUT ADDITIONAL UNIT OF BLOOD THAT WAS ORDERED. PLAN TO HOLD RIGHT NOW DUE TO HGB BEING STABLE. WILL CONTINUE TO CARE FOR PT AND REPORT TO ONCOMING RN.
--- NOTE | 2022-11-03 18:47 | NUR ---
LATE ENTRY: RN RECEIVED REPORT FROM NAOMI AT 1730. PT IS ADMITTED FOR A UGI BLEED. HE IS a&O X4. CONTINENT. PLAN IS FOR DR. LINARES TO ROUND TONIGHT AND POSSIBLY COMPLETE AN EGD TOMORROW. PER NURSE NAOMI'S REPORT, PT HAS HAD ONE BLOODY STOOL THAT HE REPORTED TO HER TODAY. HE IS INDEPENEDENT IN THE ROOM WITH SBA FOR MANAGEMENT OF LINES AND IV POLES. HE HAS OCTREOTIDE, PROTONIX, AND NORMAL SALINE RUNNING. HIS DIET HAS BEEN ADVANCED TO CLEAR LIQUID DIET FOR DINNER THIS EVENING, AND PT IS TOLERATING DINNER WELL. DENIES N/V. RN WILL CONTINUE TO MONITOR. CALL LIGHT WITHIN REACH.
[2022-11-04 04:34] LABS: Hematocrit 20.1 % (37.0-53.0); Hemoglobin 6.8 g/dL (13.5-17.5); Mean Corpuscular HGB 33.3 pg (26.0-34.0); Mean Corpuscular HGB Conc 33.8 g/dL (31.5-36.5); Mean Corpuscular Volume 99 fL (80-100); Mean Platelet Volume 10.5 fL (9.1-12.4); NRBC ABSOLUTE 0.03 K/mm3 (0.00-0.02); NRBC Auto 0.5 /100 WBC (0.0-0.2); Platelet Count 85 K/mm3 (150-400); RDW Coefficient Variation 22.4 % (11.7-14.2); RDW Standard Deviation 77.7 fL (35.1-46.3); Red Blood Cell Count 2.04 M/mm3 (4.30-5.90); White Blood Cell Count 5.93 K/mm3 (4.00-11.30)
[2022-11-04 04:53] LABS: Bun/Creatinine Ratio 31.1 (12.0-20.0); Calcium, Blood 6.7 mg/dL (8.5-10.1); Creatinine, Blood 0.84 mg/dL (0.60-1.20); Potassium, Blood 4.4 mmol/L (3.5-5.5)
--- NOTE | 2022-11-04 05:59 | NUR ---
SHIFT SUMMARY A/OX4, PLEASANT AND COOPERATIVE WITH CARE. IND WITH URINAL AT BEDSIDE. DENIES ANY BM'S THIS SHIFT. C/O LOWER ABD PAIN, MEDICATED PER EMAR. CIWA <10. TELE SR IN THE 70S. SPO2 >92% ON RA. SANDOSATIN AND PROTONIX GTT RUNNING. HGB 6.8 ON AM LABS, NEW ORDERS TO TRANSFUSE 1 UNIT PRBC. NPO EXCEPT WATER AND ICE CHIPS SINCE MIDNIGHT FOR EGD TODAY. VSS, NO ACUTE CHANGES AT THIS TIME. BED IN LOWEST POSITION WITH CALL LIGHT IN REACH. WILL CONTINUE TO MONITOR AND REPORT TO ONCOMING RN.
--- NOTE | 2022-11-04 13:05 | NUR ---
Pt resting in bed upon arrival. Pt denies pain, nausea, and SOB at this time. Pt does report mild anxiety. Pt reports living at home with his . He reports having several children. One son lives close to him and other children that live in [place]. He reports family is supportive of his needs. Engaged in therapeutic discussion regarding advanced care planning. Educated on disease process including trajectory. Discussed the importance of routine conversations with PCP and GI specialist including developing plans for the future as disease progresses. Offered therapeutic listening and answered questions. Discussed code status wishes. Educated on life sustaining treatments including risk factors and implications of CPR. Pt reports he will consider his wishes. Continued therapeutic listening. Offered suggestions and educated on the importance of complying with recommendations. Palliative Care will remain available
--- NOTE | 2022-11-04 15:33 | NUR ---
Patient is lying in bed and alert. He tells me about his thoughts on , dying and the after life. He states that he has 6 mos to a year to live and he has much guilt and shame for inflicting hamr to his body by his poor choices with alcohol. I normalize those thoughts and we sit with that for some time but we also explore sources of david, value and meaning. He explains about his spiritual journey that began in 1991, his 3 marriages and the grown children and grandchildren that surround his life. We talk about positive ways to use the time and breath he has left. I reinforce helpful attitudes and perspectives, heard confession and provide therapeutic listening, theological insights and prayer. Patient responded well and displayed evidence of resolve to live with intention and leah. I will continue to remain available to patient and family.
--- NOTE | 2022-11-04 18:41 | NUR ---
END OF SHIFT PT A&O X4. VSS. SPO2 > 92% ON RA. MONITOR SHOWING NSR. PT DENYING ABD PAIN, N/V OR BLOOD IN STOOL THIS SHIFT. PT REPORTING BLOOD IN URINE, THEN SHOWING NURSE URINE, STATING "SEE IT'S A LITTLE RED" BUT URINE APPEARANCE YELLOW/BROWN COLOR W/ NO PINK OR RED NOTED. PT TO BE ICE CHIPS & WATER ONLY AFTER MIDNIGHT TONIGHT FOR POTENTIAL EGD TOMORROW.
[2022-11-04 19:29] LABS: Hematocrit 30.8 % (37.0-53.0); Hemoglobin 10.3 g/dL (13.5-17.5)
--- NOTE | 2022-11-04 23:57 | NUR ---
ASSUMPTION OF CARE ASSUMED CARE OF PT AT 1900. PT A&Ox4, CALLS AND COMMUNICATES NEEDS APPROPRIATELY. VSS, SpO2> 92% RA, DENIES SOB. BP STABLE, SINUS 70's, DENIES CP/PRESSURE. PROTONIX gtt AND OCTREOTIDE gtt INFUSING CONTINUOUSY PER EMAR. PT TO BE ON ICE CHIPS AND WATER AT 0000, NPO STARTING AT 1200 215. PT IND IN ROOM, CONTINENT OF URINE AND BOWEL, PT HAS NOT HAD BM OR S/S OF BLEEDING AT THIS TIME. CIWA STABLE WITH SCORE OF 3, NO S/S OF ALCOHOL WITHDRAWAL.
--- NOTE | 2022-11-05 05:17 | NUR ---
SHIFT SUMMARY SEE PREVIOUS NOTE, NO ACUTE CHANGES. CIWA RANGED FROM 2-8, EMDICATED PER EMAR. PT OK TO HAVE WATER AND ICE CHIPS UNTIL 1200 11/05/22, THEN WILL BE NPO FOR EGD. PROTONIX gtt AND OCTREOTIDE gtt CONTINUOUSLY INFUSING PER EMAR. NO OTHER EVENTS, WILL REPORT TO ONCOMING RN.
[2022-11-05 11:28] LABS: BASOPHILS ABSOLUTE AUTO 0.12 K/mm3 (0.00-0.23); BASOPHILS PERCENT AUTO 1 % (0-2); EOSINOPHILS PERCENT AUTO 4 % (0-6); Hematocrit 29.3 % (37.0-53.0); Hemoglobin 9.9 g/dL (13.5-17.5); IMMATURE GRAN ABSOLUTE AUTO 0.04 K/mm3 (0.00-0.10); IMMATURE GRAN PERCENT AUTO 1 % (0-1); LYMPHOCYTES ABSOLUTE AUTO 1.42 K/mm3 (0.84-5.20); LYMPHOCYTES PERCENT AUTO 17 % (21-46); MONOCYTES ABSOLUTE AUTO 1.02 K/mm3 (0.16-1.47); MONOCYTES PERCENT AUTO 12 % (4-13); Mean Corpuscular HGB 33.7 pg (26.0-34.0); Mean Corpuscular HGB Conc 33.8 g/dL (31.5-36.5); Mean Corpuscular Volume 100 fL (80-100); Mean Platelet Volume 10.4 fL (9.1-12.4); NEUTROPHILS ABSOLUTE AUTO 5.55 K/mm3 (1.96-9.15); NEUTROPHILS PERCENT AUTO 66 % (41-73); NRBC ABSOLUTE 0.03 K/mm3 (0.00-0.02); NRBC Auto 0.4 /100 WBC (0.0-0.2); Platelet Count 73 K/mm3 (150-400); RDW Coefficient Variation 22.6 % (11.7-14.2); Red Blood Cell Count 2.94 M/mm3 (4.30-5.90); White Blood Cell Count 8.45 K/mm3 (4.00-11.30)
--- NOTE | 2022-11-05 12:52 | NUR ---
Patient immediately tells me about another delay in an endoscopy and then talks at length about what is meaningful to him personally as he deals with his medical problems. We discuss, his relationships, his fears, his leah and his hopes. Patient is easily encouraged by discussion centered around his [employer] leah and the deeper matters of the heart. I provide theraeputic listening, gentle drug abuse counselor and prayer. Patient responded well and showed signs of greater hope for meaning in the days ahead. I will continue to remain available to patient and family.
--- NOTE | 2022-11-05 15:50 | NUR ---
11/05/22 1550 Nawaf Tavera. SEE ANESTHESIA RECORD.
--- NOTE | 2022-11-05 18:33 | NUR ---
END OF SHIFT PT A&O X4. VSS. SPO2 > 92% ON RA. MONITOR SHOWING NSR, HR 60s-70s. EGD DONE TODAY. UPON RETURN FROM EGD, PT ANXIOUS W/ "MID CHEST" PAIN PT DESCRIBING "MULU" SENSATION. MD COONEY NOTIFIED W/ INSTRUCTION TO GIVE PRN IV FENTANYL PER EMAR. PT REPORTING IMPROVEMENT IN PAIN & PT NO LONGER RESTLESS. OCTREOTIDE & PROTONIX GTT CONTINUE TO INFUSE PER ORDERS. BLE REMAIN EDEMATOUS, ELEVATED IN BED. NO OTHER EVENTS THIS SHIFT.
[2022-11-06 03:43] LABS: BASOPHILS ABSOLUTE AUTO 0.11 K/mm3 (0.00-0.23); BASOPHILS PERCENT AUTO 1 % (0-2); EOSINOPHILS ABSOLUTE AUTO 0.19 K/mm3 (0.00-0.68); EOSINOPHILS PERCENT AUTO 2 % (0-6); Hematocrit 26.6 % (37.0-53.0); Hemoglobin 8.9 g/dL (13.5-17.5); IMMATURE GRAN ABSOLUTE AUTO 0.05 K/mm3 (0.00-0.10); IMMATURE GRAN PERCENT AUTO 1 % (0-1); LYMPHOCYTES ABSOLUTE AUTO 1.16 K/mm3 (0.84-5.20); LYMPHOCYTES PERCENT AUTO 14 % (21-46); MONOCYTES ABSOLUTE AUTO 1.05 K/mm3 (0.16-1.47); MONOCYTES PERCENT AUTO 12 % (4-13); Mean Corpuscular HGB 33.5 pg (26.0-34.0); Mean Corpuscular HGB Conc 33.5 g/dL (31.5-36.5); Mean Corpuscular Volume 100 fL (80-100); Mean Platelet Volume 10.2 fL (9.1-12.4); NEUTROPHILS ABSOLUTE AUTO 5.99 K/mm3 (1.96-9.15); NEUTROPHILS PERCENT AUTO 70 % (41-73); Platelet Count 96 K/mm3 (150-400); RDW Coefficient Variation 22.6 % (11.7-14.2); RDW Standard Deviation 77.4 fL (35.1-46.3); Red Blood Cell Count 2.66 M/mm3 (4.30-5.90); White Blood Cell Count 8.55 K/mm3 (4.00-11.30)
[2022-11-06 04:26] LABS: Albumin, Blood 1.8 g/dL (3.4-5.0); Albumin/Globulin Ratio 0.6 (0.8-1.8); Bilirubin, Total 10.2 mg/dL (0.1-1.0); Bun/Creatinine Ratio 24.4 (12.0-20.0); Calcium, Blood 7.3 mg/dL (8.5-10.1); Creatinine, Blood 0.74 mg/dL (0.60-1.20); Globulin, Blood 3.1 g/dL (2.2-4.0); Potassium, Blood 4.5 mmol/L (3.5-5.5); Total Protein, Blood 4.9 g/dL (6.4-8.2)
--- NOTE | 2022-11-06 05:05 | NUR ---
SHIFT SUMMARY PT A&Ox4, CALLS AND COMMUNICATES NEEDS APPROPRIATELY. VSS, SpO2> 92% RA, DENIES SOB. BP STABLE, SINUS 70's, DENIES CP/PRESSURE. PROTONIX gtt AND OCTREOTIDE gtt INFUSING CONTINUOUSY PER EMAR. PT IND IN ROOM, CONTINENT OF URINE AND BOWEL, PT HAS NOT HAD BM OR S/S OF BLEEDING AT THIS TIME. CIWA STABLE, NO S/S OF ALCOHOL WITHDRAWAL. CIWA RANGED FROM 2-8, EMDICATED PER EMAR. NO OTHER EVENTS, WILL REPORT TO ONCOMING RN.
[2022-11-07 01:05] LABS: Source, Urine Voided
[2022-11-07 01:47] LABS: Appearance, Urine Clear (Clear); Blood, Urine Neg (Neg); Color, Urine Amber (P-Yellow); Glucose Qualitative, Urine Neg (Neg); Ketones, Urine Neg (Neg); Leukocyte Esterase, Urine 1+ (Neg); Nitrite, Urine Neg (Neg); Protein, Urine 2+ (Neg); Specific Gravity, Urine 1.025 (1.003-1.022); Urobilinogen, Urine 2+ (Normal)
[2022-11-07 02:09] LABS: Bilirubin, Urine 2+ (Neg)
[2022-11-07 02:10] LABS: Bacteria Few /hpf; Hyaline Casts 0-2 /lpf (0-2); Red Blood Cells, Urine 0-2 /hpf (0-2); Squamous Epithelial Cells Rare /hpf (Few)
--- NOTE | 2022-11-07 06:41 | NUR ---
VISITING PROFESSOR SUMMARY NO ACUTE EVENTS. PT ABLE TO MAKE NEEDS KNOW. CAN ANSWER ORIENATION QUESTIONS BUT THOUGHT PROCESS SEEMS SCATTERED/CONFUSED. PT ON CLEAR LIQUIDS T/O THE NIGHT. CBG CHECKS Q6. URINE DARK DARIANA IN COLOR. SENT SAMPLE TO LAB--CULTURE PENDING. PT C/O OF 10/10 PAIN IN STERNAL CHEST AREA R/T EDG AND BAND PLACEMENT. MED P/EMAR W/25MCG OF FENTANYL WITH LITTLE RESULT. CALL LIGHT ACCESSIBLE.
[2022-11-07 10:01] LABS: BASOPHILS ABSOLUTE AUTO 0.15 K/mm3 (0.00-0.23); BASOPHILS PERCENT AUTO 2 % (0-2); EOSINOPHILS ABSOLUTE AUTO 0.37 K/mm3 (0.00-0.68); EOSINOPHILS PERCENT AUTO 4 % (0-6); Hematocrit 27.6 % (37.0-53.0); Hemoglobin 9.3 g/dL (13.5-17.5); IMMATURE GRAN ABSOLUTE AUTO 0.05 K/mm3 (0.00-0.10); IMMATURE GRAN PERCENT AUTO 1 % (0-1); LYMPHOCYTES ABSOLUTE AUTO 1.53 K/mm3 (0.84-5.20); LYMPHOCYTES PERCENT AUTO 16 % (21-46); MONOCYTES ABSOLUTE AUTO 1.22 K/mm3 (0.16-1.47); MONOCYTES PERCENT AUTO 12 % (4-13); Mean Corpuscular HGB 34.1 pg (26.0-34.0); Mean Corpuscular HGB Conc 33.7 g/dL (31.5-36.5); Mean Corpuscular Volume 101 fL (80-100); Mean Platelet Volume 10.4 fL (9.1-12.4); NEUTROPHILS ABSOLUTE AUTO 6.56 K/mm3 (1.96-9.15); NEUTROPHILS PERCENT AUTO 67 % (41-73); Platelet Count 99 K/mm3 (150-400); RDW Coefficient Variation 22.4 % (11.7-14.2); RDW Standard Deviation 79.7 fL (35.1-46.3); Red Blood Cell Count 2.73 M/mm3 (4.30-5.90); White Blood Cell Count 9.88 K/mm3 (4.00-11.30)
--- NOTE | 2022-11-07 20:32 | NUR ---
SHIFT SUMMARY PTN WITH ESOPHOGEAL DISCOMFORT, REQUESTING MEDICATION FOR SAME, SEE EMAR. PTN ON CLEAR LIQUIDS AND BLOOD SUGARS CHECKED Q6 HRS. NO ACUTE EVENTS. CONTINUE TO MONITOR.
[2022-11-08 05:19] LABS: BASOPHILS ABSOLUTE AUTO 0.14 K/mm3 (0.00-0.23); BASOPHILS PERCENT AUTO 2 % (0-2); EOSINOPHILS ABSOLUTE AUTO 0.33 K/mm3 (0.00-0.68); EOSINOPHILS PERCENT AUTO 4 % (0-6); Hematocrit 25.6 % (37.0-53.0); Hemoglobin 8.5 g/dL (13.5-17.5); IMMATURE GRAN ABSOLUTE AUTO 0.05 K/mm3 (0.00-0.10); IMMATURE GRAN PERCENT AUTO 1 % (0-1); LYMPHOCYTES ABSOLUTE AUTO 1.58 K/mm3 (0.84-5.20); LYMPHOCYTES PERCENT AUTO 20 % (21-46); MONOCYTES ABSOLUTE AUTO 1.19 K/mm3 (0.16-1.47); MONOCYTES PERCENT AUTO 15 % (4-13); Mean Corpuscular HGB 33.7 pg (26.0-34.0); Mean Corpuscular HGB Conc 33.2 g/dL (31.5-36.5); Mean Corpuscular Volume 102 fL (80-100); Mean Platelet Volume 10.1 fL (9.1-12.4); NEUTROPHILS ABSOLUTE AUTO 4.54 K/mm3 (1.96-9.15); NEUTROPHILS PERCENT AUTO 58 % (41-73); Platelet Count 75 K/mm3 (150-400); RDW Coefficient Variation 21.6 % (11.7-14.2); RDW Standard Deviation 77.5 fL (35.1-46.3); Red Blood Cell Count 2.52 M/mm3 (4.30-5.90); White Blood Cell Count 7.83 K/mm3 (4.00-11.30)
[2022-11-08 06:04] LABS: Albumin, Blood 1.8 g/dL (3.4-5.0); Albumin/Globulin Ratio 0.6 (0.8-1.8); Bun/Creatinine Ratio 22.8 (12.0-20.0); Calcium, Blood 7.5 mg/dL (8.5-10.1); Creatinine, Blood 0.66 mg/dL (0.60-1.20); Globulin, Blood 3.1 g/dL (2.2-4.0); Potassium, Blood 4.3 mmol/L (3.5-5.5); Total Protein, Blood 4.9 g/dL (6.4-8.2)
--- NOTE | 2022-11-08 17:56 | NUR ---
DAYSHIFT SUMMARY Patient reporting mild epigastric pain , plan is to continue to monitor labs, transition to PO pain meds. Tramadol 50mg given for pain, GI cocktail also given for pain. Patient verbalizes feeling distraught over current illness, asking staff what he needs to do to get better. Patients says he will never drink again. Provided education on medications and portal hypertension. Vitals stable, Plan is to discharge home tomorrow.
--- NOTE | 2022-11-09 04:50 | NUR ---
A/OX3-4; FORGETFUL AT TIMES. CALM AND COOPERATIVE. DENIES PAIN AND DENIES FEELING NAUSEATED. JAUNDICED. POWERGLIDE LUE PATENT SLEEP PROMOTED. BED ALARM SET. CALL LIGHT IN REACH; ENCOURAGED TO MAKE NEEDS KNOWN.
[2022-11-09 08:35] LABS: BASOPHILS ABSOLUTE AUTO 0.11 K/mm3 (0.00-0.23); BASOPHILS PERCENT AUTO 2 % (0-2); EOSINOPHILS ABSOLUTE AUTO 0.26 K/mm3 (0.00-0.68); EOSINOPHILS PERCENT AUTO 4 % (0-6); Hematocrit 25.4 % (37.0-53.0); Hemoglobin 8.4 g/dL (13.5-17.5); IMMATURE GRAN ABSOLUTE AUTO 0.04 K/mm3 (0.00-0.10); IMMATURE GRAN PERCENT AUTO 1 % (0-1); LYMPHOCYTES ABSOLUTE AUTO 1.09 K/mm3 (0.84-5.20); LYMPHOCYTES PERCENT AUTO 16 % (21-46); MONOCYTES ABSOLUTE AUTO 0.87 K/mm3 (0.16-1.47); MONOCYTES PERCENT AUTO 13 % (4-13); Mean Corpuscular HGB 33.7 pg (26.0-34.0); Mean Corpuscular HGB Conc 33.1 g/dL (31.5-36.5); Mean Corpuscular Volume 102 fL (80-100); Mean Platelet Volume 10.9 fL (9.1-12.4); NEUTROPHILS ABSOLUTE AUTO 4.43 K/mm3 (1.96-9.15); NEUTROPHILS PERCENT AUTO 65 % (41-73); Platelet Count 72 K/mm3 (150-400); RDW Coefficient Variation 21.1 % (11.7-14.2); Red Blood Cell Count 2.49 M/mm3 (4.30-5.90)
[2022-11-09] MEDS ORDERED: CLOP75 PO (12:11)
[2022-11-09] MEDS ORDERED: PROP10 PO (12:14)
[2022-11-09] MEDS ORDERED: ALUM-MAG HYDRO360 M1 PO (12:17)
--- NOTE | 2022-11-09 15:09 | NUR ---
PT AWAKE DURING SHIFT REPORT. PLEASANT AND CO-OP WITH CARE. ADMITTED FOR UGIB; RESOLVED. PT WITH HX OF CIRRHOSIS; PT VERY JAUNDICE, WITH DRY FLAKEY, FRAGILE SKIN. ABD VERY DISTENDED D/T ASCITES. LE'S SWOLLEN. PT MEDICATED FOR C/O THROAT PAIN D/T ESOPHOGEAL VARICES/BANDING DONE RECENTLY. DR COONEY IN TO TALK WITH PT AND DISCUSS PLAN OF CARE. PT INSTRUCTED TO STOP DRINKING ALCOHOL AND F/U WITH PCP AND GI RECOMMENDED. MEDICATIONS ADJUSTED; SEE EMAR. D/C ORDERS PLACED. MEDS FAXED PER PT REQUEST. PT'S TO RM PRIOR TO D/C. D/C INSTRUCTIONS REVIEWED WITH PT AND ; PT VERBALIZED UNDERSTANDING. PT ASSISTED OUT TO 'S CARE VIA W/C. PT IS VERY WEAK AND MOVES VERY SLOWLY BUT ABLE TO TX SELF TO CAR.
== END 2022-11-09 13:15 | disposition home or self-care (01) | DRG 432 ==
LOC: ER 18:14 → PCU 22:40 → MEDS 11-06 15:37 → ENPENDDIS 11-09 10:52 → MEDS 11-09 13:15
PROVIDERS: Internal Medicine; Internal Medicine Gastroenterology; Student in an Organized Health Care Education/Training Program; ADMIT Internal Medicine
PROC: 30233N1 Transfusion of Nonautologous Red Blood Cells into Peripheral Vein, Percutaneous Approach (ICD-10-PCS; 2022-11-02)
PROC: 06L38CZ Occlusion of Esophageal Vein with Extraluminal Device, Via Natural or Artificial Opening Endoscopic (ICD-10-PCS; principal; 2022-11-05 15:30)
DX: K70.31 Alcoholic cirrhosis of liver with ascites (principal); I85.11 Secondary esophageal varices with bleeding; E87.1 Hypo-osmolality and hyponatremia; K76.6 Portal hypertension; F10.239 Alcohol dependence with withdrawal, unspecified; D62 Acute posthemorrhagic anemia; K56.7 Ileus, unspecified; K31.89 Other diseases of stomach and duodenum; I25.10 Atherosclerotic heart disease of native coronary artery without angina pectoris; E11.9 Type 2 diabetes mellitus without complications; D69.6 Thrombocytopenia, unspecified; I50.9 Heart failure, unspecified; I27.20 Pulmonary hypertension, unspecified; I11.0 Hypertensive heart disease with heart failure; E78.2 Mixed hyperlipidemia; K70.10 Alcoholic hepatitis without ascites; D63.8 Anemia in other chronic diseases classified elsewhere; I35.0 Nonrheumatic aortic (valve) stenosis; R60.0 Localized edema; J44.9 Chronic obstructive pulmonary disease, unspecified; H81.09 Meniere's disease, unspecified ear; M72.2 Plantar fascial fibromatosis; F32.A Depression, unspecified; Z95.1 Presence of aortocoronary bypass graft; Z71.41 Alcohol abuse counseling and surveillance of alcoholic; I25.2 Old myocardial infarction; Z95.5 Presence of coronary angioplasty implant and graft; Z87.891 Personal history of nicotine dependence; Z79.2 Long term (current) use of antibiotics; Z79.891 Long term (current) use of opiate analgesic; Z87.19 Personal history of other diseases of the digestive system; Z86.010 Personal history of colon polyps; Z98.890 Other specified postprocedural states; Z98.1 Arthrodesis status; Z88.8 Allergy status to other drugs, medicaments and biological substances; Z79.899 Other long term (current) drug therapy; Z79.02 Long term (current) use of antithrombotics/antiplatelets; Z79.82 Long term (current) use of aspirin; Z79.4 Long term (current) use of insulin; Z79.01 Long term (current) use of anticoagulants
CPT/HCPCS: 36415; 71046; 80048; 80053; 81001; 82272; 82947; 83880; 84484; 85014; 85018; 85025; 85027; 85610; 85730; 86850; 86900; 86901; 86923; 87086; 93005; 93010; 93306; 96365; 96366; 96368; 96375; 96376; 97110; 97112; 97162; 99285-25; A9270; C1751; C9113; J0696; J1940; J2060; J2354; J2405; J2704; J2765; J3010; J3411; J7030; J7050; J7120; P9016

== ENCOUNTER 2022-11-13 11:53 | Emergency (ER) | payer OTHER ==
[~2022-11-13] VITALS: Ht 177.8 cm; Wt 90.7 kg
[~2022-11-13 11:53] MED LIST changes: +ALUM-MAG HYDRO360 M1 PO; +CLOP75 PO; +PROP10 PO
--- NOTE | 2022-11-13 12:49 | NUR ---
ED Consult Spoke with Dr Sherwood and discussed case. Pt comes to ED with CPR in progress and bleeding upper and lower. Pt has end stage liver disease. Spouse in consult room and would benefit from code status discussion. Met with spouse Pao in consult room and engaged in therapeutic discussion regarding code status. Another ED physician arrives and continues code status discussion. Spouse Pao reports Pt would not want to continue with CPR and would not want intubation. Dr Sherwood arrives back to consult room and reports Pt's demise. This RN remain behind and offered emotional support. Spouse Pao requests Pt's son be contacted and updated. Spoke with Cotton Breeder Danis and discussed case. Cotton Breeder Danis will provide spiritual support for family. Called and spoke with Pt's son Mich. Provided update and emotional support. Mich reports he will drive in from [place]. Palliative Care will remain available
--- NOTE | 2022-11-13 13:05 | NUR ---
Patient expires then I am immediately called by Palliative Care Rn Marbin to offer support to the family. I stop into say a prayer over the body in ER3 and then go to the consult rm which is full of family, who are grieving appropriately. I gather home information, conduct a life review, provide therapeutic listening, grief support and prayer. I give my card to patient's SO for bereavement follow-up. Family responds well and shows signs of being comforted. I will continue to remain available to patient and family.
== END 2022-11-13 15:58 ==
LOC: ER 11:53
DX: I46.9 Cardiac arrest, cause unspecified (principal); K92.2 Gastrointestinal hemorrhage, unspecified; Z88.8 Allergy status to other drugs, medicaments and biological substances; Z79.899 Other long term (current) drug therapy; Z79.4 Long term (current) use of insulin; I25.2 Old myocardial infarction; E78.5 Hyperlipidemia, unspecified; E11.9 Type 2 diabetes mellitus without complications; I50.9 Heart failure, unspecified
CPT/HCPCS: 93005; 93010; C9113; J2354; J7030